=== PATIENT | female | born 1965 | race Caucasian/White ===

== ENCOUNTER 2024-10-23 15:23 | Inpatient (IN) | payer MEDICARE, MEDICAID, SELFPAY ==
[2024-10-23] VITALS (15 sets, daily range): BP systolic 98–148; BP diastolic 56–87; PULSE 58–89; RESP 15–22; TEMP 36.7; O2SAT 79–100; BMI 41.8
--- NOTE | 2024-10-23 | ECG_ITS ---
Test Reason : sob Blood Pressure : */* mmHG Vent. Rate : 82 BPM Atrial Rate : 82 BPM P-R Int : 152 ms QRS Dur : 166 ms QT Int : 404 ms P-R-T Axes : 45 -60 9 degrees QTcB Int : 472 ms Normal sinus rhythm Right bundle branch block Left anterior fascicular block Bifascicular block Minimal voltage criteria for LVH, may be normal variant ( R in aVL ) Abnormal ECG No previous ECGs available Referred By: Generic ED Physician Electronically Signed By: Douglas Gan
--- NOTE | ~2024-10-23 | XR_ITS ---
CLINICAL HISTORY: cp 1 view chest x-ray Comparison: None provided Findings: There is prominence of pulmonary vasculature. There is prominence of interstitial markings. There is no consolidative process. Borderline heart size. Dense mitral annular calcification. No acute fracture. IMPRESSION: 1. Possible pulmonary congestion. 2. Prominence of interstitial markings may be chronic or could indicate interstitial edema or interstitial infiltrates. This document has been electronically signed by: Angi Browne MD on 10/23/2024 18:05:05
--- NOTE | ~2024-10-23 | CT_ITS ---
CLINICAL HISTORY: hypoxia r o PNA CT Chest WO Contrast COMPARISON: CR - XR CHEST 1V - 10/23/24 16:54 EDT FINDINGS: Trace bilateral pleural effusions with adjacent atelectasis and/or infiltrates. No pneumothorax. No cardiomegaly. No pericardial effusion. No pathologically enlarged lymph nodes. No thoracic aortic aneurysm. No acute fracture. Mild degenerative changes in the spine. Diffusely hypodense liver consistent with hepatic steatosis. Hepatomegaly. IMPRESSION: Trace bilateral pleural effusions with adjacent atelectasis and/or infiltrates. Nonemergent/incidental findings above. This document has been electronically signed by: Deny Mejía MD on 10/23/2024 23:42:21
--- NOTE | 2024-10-23 16:13 | ED_ITS ---
HPI - SOB/Dyspnea General Chief Complaint: Dyspnea Stated Complaint: hypoxic per staff, on nrb Time Seen by Provider: 10/23/24 16:00 History of Present Illness HPI Narrative: In his a 59-year-old female with a history of upper respiratory symptoms. Has a history of COPD history of congestive heart failure baseline not on oxygen. Full code has a history of psychiatric disorder has a history of smoking and peripheral vascular disease. Presented today with increasing shortness of breath coughing upper respiratory symptoms. Patient is from assisted. Related Data Home Medications ?Medication ?Instructions ?Recorded ?Confirmed acetaminophen 650 mg rectal 650 mg [place] Q6H PRN Fever Or Pain 10/23/24 10/23/24 suppository aspirin 81 mg tablet,delayed 81 mg PO DAILY 10/23/24 0 10/23/24 release atorvastatin 20 mg tablet 20 mg PO BEDTIME 10/23/24 bisacodyl 10 mg rectal suppository 10 mg [place] DAILY PRN Constipation 10/23/24 10/23/24 chlorhexidine gluconate 0.12 % 15 ml PO BID 10/23/24 0 10/23/24 mouthwash cholecalciferol (vitamin D3) 1,250 1,250 mcg PO QMONTH 10/23/24 10/23/24 mcg (50,000 unit) tablet dextran 70-hypromellose eye drops 1 drp ophthalmic (ey e) Q4H PRN Dry 10/23/24 10/23/24 in a dropperette (Artificial Tears Eye(S) (PF) drops in a dropperette) docusate sodium 100 mg capsule 100 mg PO DAILY 5 10/23/24 donepezil 10 mg tablet 10 mg PO BEDTIME 10/23/24 epinephrine 0.3 mg/0.3 mL 0.3 mg IM Q15M PRN Allergic 10/23/24 10/23/24 injection, auto-injector (EpiPen) Reaction ferrous sulfate 325 mg (65 mg 325 mg PO DAILY 10/23/24 10/23/24 iron) tablet,delayed release gemfibrozil 600 mg tablet 600 mg PO BID 10/23/2410/23 glucagon 1 mg/0.2 mL subcutaneous 1 mg subcut Q15M PRN low blood 10/23/24 10/23/24 solution (Gvoke) sugar lisinopril 5 mg tablet 5 mg PO DAILY 10/23/2410/23 loperamide 2 mg tablet 2 mg PO NEEDED PRN Loose Stool 10/23/24 10/23/24 lorazepam 1 mg tablet 1 mg PO TID 10/23/24 5 methyl salicylate 15 %-menthol 10 1 appl topical DAILY PRN Pain 10/23/24 10/23/24 % topical cream (Muscle Rub) metoprolol tartrate 25 mg tablet 12.5 mg PO BID 10/23/24 nystatin 100,000 unit/gram topical 1 appl topical STEPAN Y 10/23/24 10/23/24 ointment ondansetron HCl 4 mg tablet 4 mg PO Q8H PRN Nausea And Vomiting 10/23/24 10/23/24 polyethylene glycol 3350 17 17 g PO DAILY PRN Constipa tion 10/23/24 10/23/24 gram/dose oral powder (Miralax) pseudoephedrine-guaifenesin ER 60 1 tab PO BID 5 10/23/24 mg-600 mg tablet,extend release 12hr (Mucinex D) quetiapine 300 mg tablet 300 mg PO BID 10/23/2410/23 risperidone 3 mg tablet 3 mg PO BID 10/23/24 5 risperidone microspheres 50 mg/2 50 mg IM Q2W 10/23/24 10/23/24 mL intramuscular susp,ext release (Risperdal Consta) sertraline 100 mg tablet 100 mg PO DAILY 10/23/2403/09 sodium phosphates 19 gram-7 118 ml [place] DAILY PRN Consti pation 10/23/24 10/23/24 gram/118 mL enema (Fleet Enema) valacyclovir 500 mg tablet 500 mg PO DAILY 10/23/24 Allergies Allergy/AdvReac Type Severity Reaction Status Date / Time amoxicillin Allergy Unknown Verified 10/23/24 15:37 indomethacin Allergy Unknown Verified 10/23/24 15:37 naproxen (From Naprosyn) Allergy Unknown Verified 10/23/24 15:37 Papaya Derivative Allergy Unknown Verified 10/23/24 15:37 Penicillins Allergy Unknown Verified 10/23/24 15:37 tramadol (From Ultram) Allergy Unknown Verified 10/23/24 15:37 Review of Systems 2 Review of Systems: Positive coughing upper respiratory symptoms Yes all other systems are reviewed and are negative [facility] Social History Social History Advance Directives: No Advance Directives Information Provided: Yes Physical Exam 2 Vital Signs: Vital Signs: Last Vital Signs Temp 98.1 F 10/23/24 15:30 Pulse 84 10/23/24 23:35 Resp 23 H 10/24/24 00:01 BP 117/73 10/23/24 22:30 Pulse Ox 94 10/23/24 22:30 O2 Del Method BiPAP 10/23/24 22:30 O2 Flow Rate 4 10/23/24 20:13 Oxygen Flow Rate 6 10/23/24 15:30 BMI result Body Mass Index 41.8 Appearance: Alert. Oriented X3. No acute distress. Eyes: Pupils equal, round and reactive to light. ENT: Pharynx normal. Neck: Normal inspection. Neck supple. No lymph nodes noted. No crepitus CVS: Normal heart rate and rhythm. Pulses normal. Normal S1 and S2 Respiratory: Diminished breath sounds bilaterally Abdomen: Soft and nontender. No rigidity. No distention. good BS x4 Skin: Skin warm and dry. Normal skin color. Normal skin turgor. Extremities: 3+ pitting edema in the lower extremity Neuro: Oriented X 3. No motor deficit. No sensory deficit. Moving all extermities. No slurred speech Medications Administered Generic Name Dose Route Start Last Admin Trade Name Freq PRN Reason Stop Dose Admin Albuterol/Ipratropium 3 ml 10/23/24 22:45 10/23/24 23:34 Albuterol/Iprat 2.5/0.5mg 3 Ml Ampul.Neb INHALE 3 ml Q6H SANDRA Administration Discontinued Medications Generic Name Dose Route Start Last Admin Trade Name Freq PRN Reason Stop Dose Admin Albuterol Sulfate 5 mg/ 0 mg 10/23/24 16:47 10/23/24 17:05 Albuterol/Ipratropium 3 ml INHALE 10/23/24 16:48 1 each ONCE ONE Administration Cefepime HCl 1 gm/ Sodium 50 mls @ 100 mls/hr 10/23/24 16:08 10/23/24 17:27 Chloride IV 10/23/24 16:37 Infused ONCE ONE Infusion Magnesium Sulfate 2 gm in 50 mls @ 150 mls/hr 10/23/24 16:08 10/23/24 17:17 Magnesium Sulfate/H2o IV 10/23/24 16:27 Infused ONCE ONE Infusion Methylprednisolone Sodium Succinate 125 mg 10/23/24 16:08 10/23/24 16:57 Methylprednisolone Sod Succ 125 Mg/2 Ml Vial IVPUSH 10/23/24 16:09 125 mg ONCE ONE Administration Medical Decision Making Medical Decision Making [facility] Narrative: No significant old records here at [facility]. History of congestive heart failure history of COPD documented from assisted paperwork. Patient is a full code. Presented with increasing shortness of breath needing oxygen. Will get labs, steroid, x-rays. Patient is started on a bronch protocol. My interpretation patient's EKG showed a sinus rhythm heart rate is 80 [place] is normal QRS is wide patient has a right bundle branch block there is no acute ST segment elevation. There is no old EKG to compare. ABG was done. It showed acute on chronic CO2 retention. BiPAP was started. Patient's BNP was normal there is no evidence for congestive heart failure. X- ray showed no focal infiltrate. Less likely pneumonia nevertheless patient was covered with cefepime. She is from assisted. Require increasing O2 demand. Towel Hemmer was notified. Will consult on the case. Patient's symptom actually improved after the BiPAP. Repeat VBG showed no CO2 retention normal pH. Case consulted by the hospitalist team. Will admit for further evaluation. Differential Diagnosis Differential Diagnoses: The differential diagnosis associated with the presentation includes Respiratory failure, COPD Admission/Observation Consideration of admission/observation: Escalation of care including admission/observation considered Consult Healthcare Provider Management of the patient was discussed with: Hand Washer (Towel Hemmer) Lab Data [facility] Lab Attestation statement: I reviewed the patient's lab results. 10/23/24 23:18 10/23/24 23:18 Labs: Lab Results 10/23/24 10/23/24 10/23/24 Range/Units 16:49 16:51 16:58 WBC 12.6 H (4.8-10.8) X10*3/uL RBC 4.48 (4.20-5.50) X10*6/uL Hgb 11.9 L (12.0-16.0) g/dl Hct 37.3 (37.0-47.0) % MCV 83.3 (80.0-98.0) fL MCH 26.6 L (27.0-33.0) pg MCHC 31.9 (31.0-35.0) g/dl RDW 13.8 (11.0-16.0) % Plt Count 298 (160-400) X10*3/uL MPV 9.5 (9.4-12.3) fL Immature Gran % (Auto) 0.9 H (0.0-0.4) % Neut % (Auto) 78.0 H (45-73) % Lymph % (Auto) 14.6 L (20-40) % [place] % (Auto) 5.6 (2-11) % Eos % (Auto) 0.7 (0-4) % Baso % (Auto) 0.2 (0-2) % Lymph # (Auto) 1.8 (1.2-4.9) X10*3/uL [place] # (Auto) 0.7 (0.1-1.2) X10*3/uL Eos # (Auto) 0.1 (0.0-0.4) X10*3/uL Baso # (Auto) 0.0 (0.0-0.2) X10*3/uL Abs Immat Gran (auto) 0.11 H (0.00-0.03) X10*3/uL Absolute Neuts (auto) 9.8 H (2.0-8.3) x10*3/uL Absolute Nucleated RBC 0.000 (0.0-0.012) X10*3/uL Nucleated RBC % (auto) 0.0 (0.0-0.2) /100WBC O2 Saturation % ABG pH at Pt Temp (7.35-7.45) ABG pCO2 at Pt Temp (32-45) mmHg ABG pO2 at Pt Temp (83-108) mmHg ABG HCO3 (22-26) mmol/L ABG Base Excess (Actual) mmol/L VBG pH 7.37 (7.32-7.43) VBG pCO2 53 mmHg VBG pO2 50 mmHg VBG HCO3 31 H (22-26) mmol/L VBG O2 Saturation 82.0 % VBG Base Excess 5.4 mmol/L Sodium (135-145) mmol/L Potassium (3.3-5.1) mmol/L Chloride (96-108) mmol/L Carbon Dioxide (22-29) mmol/L Anion Gap (12-20) BUN (9-16) mg/dL Creatinine (0.5-1.4) mg/dL Estim Creat Clear Calc Estimated GFR Random Glucose (60-115) mg/dL Lactic Acid 0.7 (0.5-2.0) mmol/L Calcium (8.4-10.2) mg/dL Total Bilirubin (0.0-1.0) mg/dL Direct Bilirubin (0.0-0.5) mg/dL AST (5-31) U/L ALT (0-31) U/L Alkaline Phosphatase (39-117) U/L Troponin I High Sens 5.6 (<3.5-17.0) ng/L B-Natriuretic Peptide 84 (<100) pg/mL Total Protein (6.5-8.0) g/dL Albumin (3.5-5.0) g/dL Urine Color Urine Appearance Urine pH (5.0-9.0) Ur Specific [place] (1.005-1.025) Urine Protein (Neg-Trace) mg/dL Urine Glucose (UA) (Negative) mg/dL Urine Ketones (Negative) mg/dL Urine Blood (Negative) Urine Nitrite (Negative) Ur Leukocyte Esterase (Negative) Urine RBC (0-2) /HPF Urine WBC (0-5) /HPF Ur Squamous Epith Cells (0-2) /HPF Urine Bacteria (None Seen) Hyaline Casts (0-2) /LPF Influenza Type A (PCR) NEGATIVE (Negative) Influenza Type B (PCR) NEGATIVE (Negative) RSV RNA Qual (PCR) NEGATIVE (Negative) SARS-CoV-2 RNA (RT-PCR) NEGATIVE (Negative) 10/23/24 10/23/24 10/23/24 Range/Units 17:00 17:43 20:25 WBC (4.8-10.8) X10*3/uL RBC (4.20-5.50) X10*6/uL Hgb (12.0-16.0) g/dl Hct (37.0-47.0) % MCV (80.0-98.0) fL MCH (27.0-33.0) pg MCHC (31.0-35.0) g/dl RDW (11.0-16.0) % Plt Count (160-400) X10*3/uL MPV (9.4-12.3) fL Immature Gran % (Auto) (0.0-0.4) % Neut % (Auto) (45-73) % Lymph % (Auto) (20-40) % [place] % (Auto) (2-11) % Eos % (Auto) (0-4) % Baso % (Auto) (0-2) % Lymph # (Auto) (1.2-4.9) X10*3/uL [place] # (Auto) (0.1-1.2) X10*3/uL Eos # (Auto) (0.0-0.4) X10*3/uL Baso # (Auto) (0.0-0.2) X10*3/uL Abs Immat Gran (auto) (0.00-0.03) X10*3/uL Absolute Neuts (auto) (2.0-8.3) x10*3/uL Absolute Nucleated RBC (0.0-0.012) X10*3/uL Nucleated RBC % (auto) (0.0-0.2) /100WBC O2 Saturation 79.0 % ABG pH at Pt Temp 7.29 L (7.35-7.45) ABG pCO2 at Pt Temp 71 H* (32-45) mmHg ABG pO2 at Pt Temp 56 L (83-108) mmHg ABG HCO3 34 H (22-26) mmol/L ABG Base Excess (Actual) 5.7 mmol/L VBG pH 7.44 H (7.32-7.43) VBG pCO2 39 mmHg VBG pO2 213 mmHg VBG HCO3 26 (22-26) mmol/L VBG O2 Saturation 100.0 % VBG Base Excess 2.7 mmol/L Sodium 138 (135-145) mmol/L Potassium 4.2 (3.3-5.1) mmol/L Chloride 99 (96-108) mmol/L Carbon Dioxide 33 H (22-29) mmol/L Anion Gap 10 L (12-20) BUN 21 H (9-16) mg/dL Creatinine 0.89 (0.5-1.4) mg/dL Estim Creat Clear Calc 94.8 Estimated GFR > 60 Random Glucose 97 (60-115) mg/dL Lactic Acid (0.5-2.0) mmol/L Calcium 9.5 (8.4-10.2) mg/dL Total Bilirubin 0.2 (0.0-1.0) mg/dL Direct Bilirubin < 0.2 (0.0-0.5) mg/dL AST 16 (5-31) U/L ALT 13 (0-31) U/L Alkaline Phosphatase 93 (39-117) U/L Troponin I High Sens (<3.5-17.0) ng/L B-Natriuretic Peptide (<100) pg/mL Total Protein 7.3 (6.5-8.0) g/dL Albumin 3.9 (3.5-5.0) g/dL Urine Color Urine Appearance Urine pH (5.0-9.0) Ur Specific [place] (1.005-1.025) Urine Protein (Neg-Trace) mg/dL Urine Glucose (UA) (Negative) mg/dL Urine Ketones (Negative) mg/dL Urine Blood (Negative) Urine Nitrite (Negative) Ur Leukocyte Esterase (Negative) Urine RBC (0-2) /HPF Urine WBC (0-5) /HPF Ur Squamous Epith Cells (0-2) /HPF Urine Bacteria (None Seen) Hyaline Casts (0-2) /LPF Influenza Type A (PCR) (Negative) Influenza Type B (PCR) (Negative) RSV RNA Qual (PCR) (Negative) SARS-CoV-2 RNA (RT-PCR) (Negative) 10/23/24 10/23/24 Range/Units 20:28 22:36 WBC (4.8-10.8) X10*3/uL RBC (4.20-5.50) X10*6/uL Hgb (12.0-16.0) g/dl Hct (37.0-47.0) % MCV (80.0-98.0) fL MCH (27.0-33.0) pg MCHC (31.0-35.0) g/dl RDW (11.0-16.0) % Plt Count (160-400) X10*3/uL MPV (9.4-12.3) fL Immature Gran % (Auto) (0.0-0.4) % Neut % (Auto) (45-73) % Lymph % (Auto) (20-40) % [place] % (Auto) (2-11) % Eos % (Auto) (0-4) % Baso % (Auto) (0-2) % Lymph # (Auto) (1.2-4.9) X10*3/uL [place] # (Auto) (0.1-1.2) X10*3/uL Eos # (Auto) (0.0-0.4) X10*3/uL Baso # (Auto) (0.0-0.2) X10*3/uL Abs Immat Gran (auto) (0.00-0.03) X10*3/uL Absolute Neuts (auto) (2.0-8.3) x10*3/uL Absolute Nucleated RBC (0.0-0.012) X10*3/uL Nucleated RBC % (auto) (0.0-0.2) /100WBC O2 Saturation 96.0 % ABG pH at Pt Temp 7.30 L (7.35-7.45) ABG pCO2 at Pt Temp 65 H* (32-45) mmHg ABG pO2 at Pt Temp 87 (83-108) mmHg ABG HCO3 32 H (22-26) mmol/L ABG Base Excess (Actual) 4.6 mmol/L VBG pH (7.32-7.43) VBG pCO2 mmHg VBG pO2 mmHg VBG HCO3 (22-26) mmol/L VBG O2 Saturation % VBG Base Excess mmol/L Sodium (135-145) mmol/L Potassium (3.3-5.1) mmol/L Chloride (96-108) mmol/L Carbon Dioxide (22-29) mmol/L Anion Gap (12-20) BUN (9-16) mg/dL Creatinine (0.5-1.4) mg/dL Estim Creat Clear Calc Estimated GFR Random Glucose (60-115) mg/dL Lactic Acid (0.5-2.0) mmol/L Calcium (8.4-10.2) mg/dL Total Bilirubin (0.0-1.0) mg/dL Direct Bilirubin (0.0-0.5) mg/dL AST (5-31) U/L ALT (0-31) U/L Alkaline Phosphatase (39-117) U/L Troponin I High Sens (<3.5-17.0) ng/L B-Natriuretic Peptide (<100) pg/mL Total Protein (6.5-8.0) g/dL Albumin (3.5-5.0) g/dL Urine Color Yellow Urine Appearance Clear Urine pH 5.5 (5.0-9.0) Ur Specific [place] 1.025 (1.005-1.025) Urine Protein 30 (1+) H (Neg-Trace) mg/dL Urine Glucose (UA) Negative (Negative) mg/dL Urine Ketones Negative (Negative) mg/dL Urine Blood Negative (Negative) Urine Nitrite Negative (Negative) Ur Leukocyte Esterase Negative (Negative) Urine RBC 0-2 (0-2) /HPF Urine WBC 0-5 (0-5) /HPF Ur Squamous Epith Cells 3-5 (0-2) /HPF Urine Bacteria None Seen (None Seen) Hyaline Casts 3-5 (0-2) /LPF Influenza Type A (PCR) (Negative) Influenza Type B (PCR) (Negative) RSV RNA Qual (PCR) (Negative) SARS-CoV-2 RNA (RT-PCR) (Negative) Independent Interpretation I performed an independent interpretation of an: EKG (Sinus pattern heart rate was 70 with a right bundle branch block. T-wave inversion no acute changes when compared to previous) and Plain X-Ray Interpretation: Grossly negative no pneumonia Radiology Impression Discussion of test interpretation with radiology: I have reviewed the radiologist's reading. External Record Review External record reviewed: Inpatient record Social Determinants Patient?s care significantly limited by Social Determinants of Health including: Alcoholism and drug addiction in family and Problems related to primary support group Critical Care Time Critical Care Time Critical Care Time: Yes Total Critical Care Time: 40 Attestation: I have personally provided 40 minutes of critical care time exclusive of time spent on separately billable procedures. ?Time includes review of lab data, radiology results, discussion with consultants, and monitoring for potential decompensation. ?Interventions were performed as documented above Discharge Plan Discharge Clinical Impression: Acute exacerbation of chronic obstructive airways disease Patient Disposition: Admitted As Inpatient
[2024-10-23] MEDS: Magnesium Sulfate/H2O 2 GM/50 ML PIGGYBACK IV (16:57)
[2024-10-23 16:59] LABS: MANUAL DIFF FLAG NO
[2024-10-23 17:01] LABS: Venous Blood Gas Refer to POC result
[2024-10-23 17:02] LABS: Hematocrit 37.3 % (37.0-47.0); Hemoglobin 11.9 g/dl (12.0-16.0); Imm Gran Abs Auto 0.11 X10*3/uL (0.00-0.03); Imm Gran Pct Auto 0.9 % (0.0-0.4); Lymphocytes Absolute Auto 1.8 X10*3/uL (1.2-4.9); Mean Corpuscular HGB Conc 31.9 g/dl (31.0-35.0); Mean Corpuscular Hemoglobin 26.6 pg (27.0-33.0); Mean Corpuscular Volume 83.3 fL (80.0-98.0); NRBC Abs Auto 0.000 X10*3/uL (0.0-0.012); NRBC Pct Auto 0.0 /100WBC (0.0-0.2); Platelet Count 298 X10*3/uL (160-400); Red Blood Count 4.48 X10*6/uL (4.20-5.50); White Blood Count 12.6 X10*3/uL (4.8-10.8)
[2024-10-23 17:03] LABS: VBG HCO3 31 mmol/L (22-26); VBG O2 % Saturation 82.0 %
[2024-10-23 17:04] LABS: ABG HCO3 34 mmol/L (22-26); ABG O2 % Saturation 79.0 %
[2024-10-23] MEDS: Albuterol Sulfate 5 MG, Albuterol/Iprat 2.5/0.5MG 3 ML 3 ML INHALE (17:05)
--- NOTE | 2024-10-23 17:17 | PC.NURSE ---
this float RN placed a 20gIV in the right upper arm w/ an additional 22gIV in the left upper arm - both IV access' patent/intact. labs/cultures obtained/sent to lab. pt noted to be on 4L via oxymask d/t being previously hypoxic. no sob/wob noted. respirations even/unlabored but pt seemingly lethargic. RT came bedside to assess/give pt a breathing tx. after finishing breathing tx, patient noted to become hypoxic at 79% on RA. no apparent respiratory distress noted - no sob/wob. pt remained seemingly lethargic but able to answer questions/follow commands appropriately. patient immediately placed on 4L via oxymask w/ no response. pt then titrated to 10L via oxymask w/ minimal effect and an O2 of 84%. oxymask then titrated to 15L w/ good effect - SPO2 of 95%. patient then placed in bipap via RT w/ a rate of 20 - 18/8 @ 40%. patient tolerated transition well. vitals otherwise stable/up to date aside from being slightly hypotensive. nsr on the pvc monitor. patient remains in upright position to promote patent airway. primary RN notified/aware of event. plan of care ongoing.
[2024-10-23 17:19] LABS: B Type Natriuretic Peptide 84 pg/mL (<100); Troponin-I High Sensitivity 5.6 ng/L (<3.5-17.0)
[2024-10-23 17:37] LABS: Resp Syncy Virus RNA Qual PCR NEGATIVE (Negative); SARS COV2 PCR INHOUSE NEGATIVE (Negative)
[2024-10-23 18:10] LABS: Alanine Aminotransferase 13 U/L (0-31); Albumin Level 3.9 g/dL (3.5-5.0); Alkaline Phosphatase 93 U/L (39-117); Anion Gap 10 (12-20); Aspartate Amino Transferase 16 U/L (5-31); Blood Urea Nitrogen 21 mg/dL (9-16); Calcium 9.5 mg/dL (8.4-10.2); Carbon Dioxide 33 mmol/L (22-29); Chloride 99 mmol/L (96-108); Creatinine Clr Calc Pharmacy 94.8; Estimated Glomerular Filt Rate > 60; Potassium 4.2 mmol/L (3.3-5.1); Sodium 138 mmol/L (135-145); Total Protein 7.3 g/dL (6.5-8.0)
[2024-10-23 19:19] LABS: ABG Refer to POC result
--- NOTE | 2024-10-23 20:02 | PHA.MEDREC ---
Addendum entered by Cynthia Ball [facility] 10/24/24 14:52: After several attempts reached [facility] and found out last dose of risperdal consta given on 10/14 and next dose due 10/28/24. Addendum entered by Lorenzo Florentino [facility] 10/23/24 20:12: med rec reviewed unable to clarifiy when last dose of risperdal consta given will follow up in am Original Note: Pharmacy Consult ? Medication Reconciliation Pharmacy has completed the medication reconciliation. Utilized list from [facility] to confirm med list. Tried calling to get last dose for Risperidone Consta 50 mg but nurse was not available
[2024-10-23 20:30] LABS: Venous Blood Gas Refer to POC result
[2024-10-23 20:30] LABS: VBG HCO3 26 mmol/L (22-26); VBG O2 % Saturation 100.0 %
[2024-10-23 20:37] LABS: Appearance Urine Clear; Glucose Urine UA Negative (Negative); PH 5.5 (5.0-9.0); Specific Gravity - Urine 1.025 (1.005-1.025); UMIC TRIGGER UACC YES
--- NOTE | 2024-10-23 22:06 | PC.RT ---
WITNESSED PT COMPLETE APNIC WITH ETC02 AT 65 AND SATS 80% PT GIVEN A STERNAL RUB AND WAS AROUSABLE. PLACED BACK ON BIPAP. DR. ALVARADO AWARE. WILL REPEAT ABG AND WILL LET ICU AWARE.
--- NOTE | 2024-10-23 22:32 | MHC.EDTECH ---
The nurse and I explained to the patient that she need to have her brief changed due to being wet even though she has a purewick, but patient refused to have a pad under her because she wanted a brief. We explained we don't have briefs her size and she would be more comfortable with the pads under her
--- NOTE | 2024-10-23 22:35 | PC.RT ---
pt should have a sleep study prior to discharge here at [facility].
[2024-10-23 22:40] LABS: ABG HCO3 32 mmol/L (22-26); ABG O2 % Saturation 96.0 %
[2024-10-23 23:07] LABS: ABG Refer to POC result
--- NOTE | 2024-10-23 23:14 | PM.CCHP ---
History of Present Illness Date of Service: 10/23/24 Attending physician on admission: Olayinka Berumen Chief Complaint: Acute hypoxic/hypercarbic respiratory failure 59-year-old female who is resident of a care home with underlying history of COPD and CHF who does not use oxygen at home, morbid obesity, hypertension, hyperlipidemia, iron deficiency anemia, anxiety, depression, who presented to the emergency room with complaints of worsening shortness of breath which has been present for a couple of days in context of some upper respiratory symptoms including cough and dyspnea at rest as well as with activities. Denied fever or plegm. The patient's workup in the emergency room reveal a white count of 12.6, H and H of 11.9 and 37.3 respectively with platelets of 298.? No bandemia.? Initial ABG pH 7.3 pCO2 65 PO2 87 and bicarb 32.? Chemistries showed no electrolyte abnormalities, BUN 21, creatinine 0.89, lactic acid 0.7.? Urinalysis negative respiratory panel negative.? The patient was placed on BiPAP for a couple hours, repeated venous blood gas showed correction of the respiratory acidosis and the patient was more awake, however the patient was then switched to nasal cannula oxygen and an hour later the venous blood gas was repeated showing recurrent CO2 retention and the patient also developed recurrent mental status changes with obtundation and significant episodes of apnea. ?Her chest x-ray showed possible pulmonary congestion with prominence of interstitial markings which may be chronic versus interstitial edema or interstitial infiltrates.? EKG to my review shows sinus rhythm with evidence of right bundle-branch block.? Rate 82 beats per minute, QT 404.? No comparison available. ?A CT of the chest without contrast was recorded for further clarification of the findings. At this point the patient was placed back on BiPAP and the patient will be transferred to the ICU for further care. Review of Systems Review of Systems: Yes Unobtainable due to mental status (Somewhat obtunded on BiPAP) [facility] Social History Social History Household Members: None Housing: Correction Do you presently have visiting nurse or other home services: No Patient Tobacco Use Status: Never used Tobacco Advance Directives: No Advance Directives Information Provided: Yes Do you have a plan to hurt others: No Plan Recently lost weight without trying: No Nutrition Risks: No Nutritional Risk Patient : No : No Poor oral hygiene: No Meds Allergies Allergy/AdvReac Type Severity Reaction Status Date / Time amoxicillin Allergy Unknown Verified 10/23/24 15:37 indomethacin Allergy Unknown Verified 10/23/24 15:37 naproxen (From Naprosyn) Allergy Unknown Verified 10/23/24 15:37 Papaya Derivative Allergy Unknown Verified 10/23/24 15:37 Penicillins Allergy Unknown Verified 10/23/24 15:37 tramadol (From Ultram) Allergy Unknown Verified 10/23/24 15:37 Active Medications: Current Medications Albuterol Sulfate (Albuterol Sulfate (0.083%) 2.5 Mg/3 Ml Vial.Neb) 2.5 mg INHALE Q3H PRN PRN Reason: wheezing Albuterol/Ipratropium (Albuterol/Iprat 2.5/0.5mg 3 Ml Ampul.Neb) 3 ml INHALE Q6H [facility] Azithromycin 500 mg/ Sodium (Chloride) 250 mls @ 125 mls/hr IV DAILY SANDRA Stop: 10/29/24 08:59 Methylprednisolone Sodium Succinate (Methylprednisolone Sod Succ 125 Mg/2 Ml Vial) 60 mg IVPUSH Q6H [facility] Home Medications ?Medication ?Instructions ?Recorded ?Confirmed ?Last Taken ?Type acetaminophen 650 mg rectal 650 mg TX Q6H PRN Fever Or Pain 10/23/24 10/23/24 Unknown History suppository aspirin 81 mg tablet,delayed 81 mg PO DAILY 10/23/24 10/23/24 Unknown History release atorvastatin 20 mg tablet 20 mg PO BEDTIME 10/23/24 10/23/24 Unknown History bisacodyl 10 mg rectal suppository 10 mg TX DAILY PRN Constipation 10/23/24 10/23/24 Unknown History chlorhexidine gluconate 0.12 % 15 ml PO BID 10/23/24 10/23/24 Unknown History mouthwash cholecalciferol (vitamin D3) 1,250 1,250 mcg PO QMONTH 10/23/24 10/23/24 Unknown History mcg (50,000 unit) tablet dextran 70-hypromellose eye drops 1 drp ophthalmic (eye) Q4H PRN Dry 10/23/24 10/23/24 Unknown History in a dropperette (Artificial Tears Eye(S) (PF) drops in a dropperette) docusate sodium 100 mg capsule 100 mg PO DAILY 10/23/24 10/23/24 Unknown History donepezil 10 mg tablet 10 mg PO BEDTIME 10/23/24 10/23/24 Unknown History epinephrine 0.3 mg/0.3 mL 0.3 mg IM Q15M PRN Allergic 10/23/24 10/23/24 Unknown History injection, auto-injector (EpiPen) Reaction ferrous sulfate 325 mg (65 mg 325 mg PO DAILY 10/23/24 10/23/24 Unknown History iron) tablet,delayed release gemfibrozil 600 mg tablet 600 mg PO BID 10/23/24 10/23/24 Unknown History glucagon 1 mg/0.2 mL subcutaneous 1 mg subcut Q15M PRN low blood 10/23/24 10/23/24 Unknown History solution (Gvoke) sugar lisinopril 5 mg tablet 5 mg PO DAILY 10/23/24 10/23/24 Unknown History loperamide 2 mg tablet 2 mg PO NEEDED PRN Loose Stool 10/23/24 10/23/24 Unknown History lorazepam 1 mg tablet 1 mg PO TID 10/23/24 10/23/24 Unknown History methyl salicylate 15 %-menthol 10 1 appl topical DAILY PRN Pain 10/23/24 10/23/24 Unknown History % topical cream (Muscle Rub) metoprolol tartrate 25 mg tablet 12.5 mg PO BID 10/23/24 10/23/24 Unknown History nystatin 100,000 unit/gram topical 1 appl topical DAILY 10/23/24 10/23/24 Unknown History ointment ondansetron HCl 4 mg tablet 4 mg PO Q8H PRN Nausea And Vomiting 10/23/24 10/23/24 Unknown History polyethylene glycol 3350 17 17 g PO DAILY PRN Constipation 10/23/24 10/23/24 Unknown History gram/dose oral powder (Miralax) pseudoephedrine-guaifenesin ER 60 1 tab PO BID 10/23/24 10/23/24 Unknown History mg-600 mg tablet,extend release 12hr (Mucinex D) quetiapine 300 mg tablet 300 mg PO BID 10/23/24 10/23/24 Unknown History risperidone 3 mg tablet 3 mg PO BID 10/23/24 10/23/24 Unknown History risperidone microspheres 50 mg/2 50 mg IM Q2W 10/23/24 10/23/24 Unknown History mL intramuscular susp,ext release (Risperdal Consta) sertraline 100 mg tablet 100 mg PO DAILY 10/23/24 10/23/24 Unknown History sodium phosphates 19 gram-7 118 ml TX DAILY PRN Constipation 10/23/24 10/23/24 Unknown History gram/118 mL enema (Fleet Enema) valacyclovir 500 mg tablet 500 mg PO DAILY 10/23/24 10/23/24 Unknown History Physical Exam Vital Signs: Vital Signs: Last Vital Signs Temp 98.1 F 10/23/24 15:30 Pulse 58 10/23/24 22:30 Resp 20 10/23/24 22:30 BP 117/73 10/23/24 22:30 Pulse Ox 94 10/23/24 22:30 O2 Del Method BiPAP 10/23/24 22:30 O2 Flow Rate 4 10/23/24 20:13 Oxygen Flow Rate 6 10/23/24 15:30 BMI result Body Mass Index 41.8 General:? Alert but somnolent on BiPAP.? Mild accessory muscle usage. ? Skin:? Morbidly obese. Her skin is hyperpigmented in the lower extremities as described below otherwise intact, no lesions, edema, erythema, clubbing or cyanosis.? No ulcers. HEENT:? Head is normocephalic, atraumatic, pupils equal. Buccal mucosa is dry Neck is supple without lymphadenopathy. Cardiac:? Clear S1-S2, no murmurs rubs or gallops. Pulmonary:? Diminished lung sounds bilaterally fine expiratory wheezing bilaterally .? No crackles, rales or rhonchi. Abdomen:? Protuberant, positive bowel sounds in all 4 quadrants.? Soft, nontender, no rebound or guarding.? Musculoskeletal:? Moving all 4 extremities upon request a major joints, there is no crepitus or tenderness.? The strength is 5/5 bilaterally and throughout all 4 extremities.? There is bilateral nonpitting edema in an ascending manner up to the tibial plateau. No asymmetry. Hyperpigmentation and pink coloration of the bilateral mid tibias consistent with a stasis dermatitis noted. Gait not assessed at this point. Neurologic:? As above.? No focal deficits noted. Vascular:? 2+ pulses upper and lower extremities distally.? Less than 2nd capillary refill of fingers and toes bilaterally upper and lower extremities Results Labs 10/24/24 05:20 10/24/24 05:20 Labs: Laboratory Results - last 24 hr 10/23/24 10/23/24 10/23/24 16:49 16:51 16:58 MCV 83.3 MCH 26.6 L MCHC 31.9 RDW 13.8 Plt Count 298 MPV 9.5 Immature Gran % (Auto) 0.9 H Neut % (Auto) 78.0 H Lymph % (Auto) 14.6 L [place] % (Auto) 5.6 Eos % (Auto) 0.7 Baso % (Auto) 0.2 Lymph # (Auto) 1.8 [place] # (Auto) 0.7 Eos # (Auto) 0.1 Baso # (Auto) 0.0 Abs Immat Gran (auto) 0.11 H Absolute Neuts (auto) 9.8 H Absolute Nucleated RBC 0.000 Nucleated RBC % (auto) 0.0 O2 Saturation ABG pH at Pt Temp ABG pCO2 at Pt Temp ABG pO2 at Pt Temp ABG HCO3 ABG Base Excess (Actual) VBG pH 7.37 VBG pCO2 53 VBG pO2 50 VBG HCO3 31 H VBG O2 Saturation 82.0 VBG Base Excess 5.4 Anion Gap Estim Creat Clear Calc Estimated GFR Random Glucose Lactic Acid 0.7 Calcium Total Bilirubin Direct Bilirubin AST ALT Alkaline Phosphatase B-Natriuretic Peptide 84 Total Protein Albumin Urine Color Urine Appearance Urine pH Ur Specific [place] Urine Protein Urine Glucose (UA) Urine Ketones Urine Blood Urine Nitrite Ur Leukocyte Esterase Urine RBC Urine WBC Ur Squamous Epith Cells Urine Bacteria Hyaline Casts Influenza Type A (PCR) NEGATIVE Influenza Type B (PCR) NEGATIVE RSV RNA Qual (PCR) NEGATIVE SARS-CoV-2 RNA (RT-PCR) NEGATIVE 10/23/24 10/23/24 10/23/24 17:00 17:43 20:25 MCV MCH MCHC RDW Plt Count MPV Immature Gran % (Auto) Neut % (Auto) Lymph % (Auto) [place] % (Auto) Eos % (Auto) Baso % (Auto) Lymph # (Auto) [place] # (Auto) Eos # (Auto) Baso # (Auto) Abs Immat Gran (auto) Absolute Neuts (auto) Absolute Nucleated RBC Nucleated RBC % (auto) O2 Saturation 79.0 ABG pH at Pt Temp 7.29 L ABG pCO2 at Pt Temp 71 H* ABG pO2 at Pt Temp 56 L ABG HCO3 34 H ABG Base Excess (Actual) 5.7 VBG pH 7.44 H VBG pCO2 39 VBG pO2 213 VBG HCO3 26 VBG O2 Saturation 100.0 VBG Base Excess 2.7 Anion Gap 10 L Estim Creat Clear Calc 94.8 Estimated GFR > 60 Random Glucose 97 Lactic Acid Calcium 9.5 Total Bilirubin 0.2 Direct Bilirubin < 0.2 AST 16 ALT 13 Alkaline Phosphatase 93 B-Natriuretic Peptide Total Protein 7.3 Albumin 3.9 Urine Color Urine Appearance Urine pH Ur Specific [place] Urine Protein Urine Glucose (UA) Urine Ketones Urine Blood Urine Nitrite Ur Leukocyte Esterase Urine RBC Urine WBC Ur Squamous Epith Cells Urine Bacteria Hyaline Casts Influenza Type A (PCR) Influenza Type B (PCR) RSV RNA Qual (PCR) SARS-CoV-2 RNA (RT-PCR) 10/23/24 10/23/24 20:28 22:36 MCV MCH MCHC RDW Plt Count MPV Immature Gran % (Auto) Neut % (Auto) Lymph % (Auto) [place] % (Auto) Eos % (Auto) Baso % (Auto) Lymph # (Auto) [place] # (Auto) Eos # (Auto) Baso # (Auto) Abs Immat Gran (auto) Absolute Neuts (auto) Absolute Nucleated RBC Nucleated RBC % (auto) O2 Saturation 96.0 ABG pH at Pt Temp 7.30 L ABG pCO2 at Pt Temp 65 H* ABG pO2 at Pt Temp 87 ABG HCO3 32 H ABG Base Excess (Actual) 4.6 VBG pH VBG pCO2 VBG pO2 VBG HCO3 VBG O2 Saturation VBG Base Excess Anion Gap Estim Creat Clear Calc Estimated GFR Random Glucose Lactic Acid Calcium Total Bilirubin Direct Bilirubin AST ALT Alkaline Phosphatase B-Natriuretic Peptide Total Protein Albumin Urine Color Yellow Urine Appearance Clear Urine pH 5.5 Ur Specific [place] 1.025 Urine Protein 30 (1+) H Urine Glucose (UA) Negative Urine Ketones Negative Urine Blood Negative Urine Nitrite Negative Ur Leukocyte Esterase Negative Urine RBC 0-2 Urine WBC 0-5 Ur Squamous Epith Cells 3-5 Urine Bacteria None Seen Hyaline Casts 3-5 Influenza Type A (PCR) Influenza Type B (PCR) RSV RNA Qual (PCR) SARS-CoV-2 RNA (RT-PCR) Assessment and Plan (1) Acute respiratory failure with hypoxia and hypercarbia: Status: Acute Plan ASSESSMENT : 1. Acute hypoxic respiratory failure 2. Acute COPD exacerbation 3. Morbid obesity 4. Suspected bibasilar atelectasis versus early pneumonia per CT 5. Stable Essential hypertension 6. Chronic Anxiety 7. Acute kidney injury likely prerenal with BUN to creatinine ratio greater than 20. 8. Proteinuria PLAN OF CARE: The patient will be admitted to the ICU, monitor vital signs, I's and O's, continue with BiPAP, target O2 sat 90 % therefore FiO2 will be titrated accordingly, we will continue with Solu-Medrol, albuterol p.r.n. and DuoNebs scheduled.? As she has a COPD or, we will place her on Rocephin and Zithromax. Sputum culture and Gram stain. I do not think the patient is septic. She appears dehydrated, slow be fluids will be given. GI PROPHYLAXIS:? IV PPI DVT PROPHYLAXIS:? Lovenox 40mg bid due to large body habitus Critical care time used for critical evaluation of this patient, diagnosis, treatment and coordination of care, review her records and documentation TOTAL CRITICAL CARE TIME? 75 MIN . discussion and coordination with consultants, completely separate from any procedures performed. Patient's care was discussed in detail with Dr. Breumen who is aware of all the above as well as the plan of care for this patient.
[2024-10-23 23:30] LABS: Hematocrit 38.0 % (37.0-47.0); Hemoglobin 12.2 g/dl (12.0-16.0); Imm Gran Abs Auto 0.15 X10*3/uL (0.00-0.03); Imm Gran Pct Auto 1.3 % (0.0-0.4); Lymphocytes Absolute Auto 0.9 X10*3/uL (1.2-4.9); MANUAL DIFF FLAG SCAN; Mean Corpuscular HGB Conc 32.1 g/dl (31.0-35.0); Mean Corpuscular Hemoglobin 26.6 pg (27.0-33.0); Mean Corpuscular Volume 83.0 fL (80.0-98.0); NRBC Abs Auto 0.000 X10*3/uL (0.0-0.012); NRBC Pct Auto 0.0 /100WBC (0.0-0.2); Platelet Count 268 X10*3/uL (160-400); Red Blood Count 4.58 X10*6/uL (4.20-5.50); SCAN SMEAR FLAG 1; White Blood Count 11.8 X10*3/uL (4.8-10.8)
[2024-10-23] MEDS: Albuterol/Iprat 2.5/0.5MG 3 ML AMPUL.NEB INHALE (23:34)
[2024-10-23 23:48] LABS: Alanine Aminotransferase 15 U/L (0-31); Albumin Level 3.8 g/dL (3.5-5.0); Alkaline Phosphatase 91 U/L (39-117); Anion Gap 15 (12-20); Aspartate Amino Transferase 15 U/L (5-31); Blood Urea Nitrogen 20 mg/dL (9-16); Calcium 9.3 mg/dL (8.4-10.2); Carbon Dioxide 26 mmol/L (22-29); Chloride 99 mmol/L (96-108); Creatinine Clr Calc Pharmacy 124.0; Estimated Glomerular Filt Rate > 60; Magnesium 2.3 mg/dL (1.6-2.6); Potassium 4.5 mmol/L (3.3-5.1); Sodium 135 mmol/L (135-145); Total Protein 7.2 g/dL (6.5-8.0)
[2024-10-24] VITALS (24 sets, daily range): BP systolic 111–146; BP diastolic 58–93; PULSE 49–84; RESP 11–29; TEMP 36.2–36.9; O2SAT 88–97; BMI 51.9; BMI 52.7
[2024-10-24] MEDS: Lactated Ringers 1,000 ML 100 ML IVCONT ×2 (00:34→08:15)
[2024-10-24] MEDS: Albuterol/Iprat 2.5/0.5MG 3 ML AMPUL.NEB INHALE ×4 (04:50→22:34)
[2024-10-24 05:27] LABS: VBG HCO3 29 mmol/L (22-26); VBG O2 % Saturation 76.0 %
[2024-10-24 05:35] LABS: Venous Blood Gas Refer to POC result
[2024-10-24 05:57] LABS: MANUAL DIFF FLAG NO
[2024-10-24 06:00] LABS: Hematocrit 41.8 % (37.0-47.0); Hemoglobin 12.8 g/dl (12.0-16.0); Imm Gran Abs Auto 0.14 X10*3/uL (0.00-0.03); Imm Gran Pct Auto 1.4 % (0.0-0.4); Lymphocytes Absolute Auto 0.9 X10*3/uL (1.2-4.9); Mean Corpuscular HGB Conc 30.6 g/dl (31.0-35.0); Mean Corpuscular Hemoglobin 25.9 pg (27.0-33.0); Mean Corpuscular Volume 84.4 fL (80.0-98.0); NRBC Abs Auto 0.000 X10*3/uL (0.0-0.012); NRBC Pct Auto 0.0 /100WBC (0.0-0.2); Platelet Count 268 X10*3/uL (160-400); Red Blood Count 4.95 X10*6/uL (4.20-5.50); White Blood Count 10.4 X10*3/uL (4.8-10.8)
[2024-10-24 06:14] LABS: Alanine Aminotransferase 12 U/L (0-31); Albumin Level 3.7 g/dL (3.5-5.0); Alkaline Phosphatase 88 U/L (39-117); Anion Gap 13 (12-20); Aspartate Amino Transferase 15 U/L (5-31); Blood Urea Nitrogen 20 mg/dL (9-16); Calcium 9.4 mg/dL (8.4-10.2); Carbon Dioxide 27 mmol/L (22-29); Chloride 99 mmol/L (96-108); Creatinine Clr Calc Pharmacy 159.7; Estimated Glomerular Filt Rate > 60; Magnesium 2.3 mg/dL (1.6-2.6); Potassium 4.6 mmol/L (3.3-5.1); Sodium 134 mmol/L (135-145); Total Protein 7.0 g/dL (6.5-8.0)
--- NOTE | 2024-10-24 06:21 | HE.ICUCC ---
ICU Critical Care Nursing Note: Patient admitted to ICU for acute hypoxic/hypercarbic resp failure requiring Bipap ICU Day #:1 Neuro: A&O x2-3 vague with date/time Cardiac: Sinus Rhythm with BBB Resp: LS diminished GI/: external catheter draining CYU Integumentary/Musculoskeletal:skin intact / pt ambulates with walker Psychosocial (family etc.):Patient lives at SNF Central Lines: Peripheral IVs 20 right arm/22 left upper arm
--- NOTE | 2024-10-24 11:11 | PM.CCPN ---
Subjective Subjective Date of Service: 10/24/24 Interval History: Doing better this morning, off BiPAP since 08:00; comfortable Critical Care Time (minutes): 35 Physical Exam Vital Signs: Vital Signs: Last Vital Signs Temp 97.2 F 10/24/24 08:00 Pulse 63 10/24/24 10:00 Resp 29 H 10/24/24 10:00 BP 127/77 10/24/24 10:00 Pulse Ox 93 10/24/24 10:00 O2 Del Method Nasal Cannula 10/24/24 10:00 O2 Flow Rate 1 10/24/24 10:00 FiO2 30 10/24/24 07:00 Oxygen Flow Rate 6 10/23/24 15:30 BMI result Body Mass Index 52.7 General: Morbidly obese lady in mild acute distress Nutritional Appearance: well nourished and morbidly obese Eyes: appearance normal, both eyes and all related structures; Alignment and Position: alignment normal and position normal Neck: No lymphadenopathy, no thyromegaly Resp: bilateral air entry equal, occasional wheeze heard Cardio: Regular rate, regular rhythm; Heart sounds: S1 normal heart sound present and S2 normal heart sound present GI: soft, nontender, no guarding, no hepatosplenomegaly : bladder normal to inspection, bladder normal to palpation, no renal angle tenderness Skin: no rashes or lesions noted and elasticity normal Neuro: oriented to person, oriented to place, oriented to time and moves all extremities Objective Data Labs 10/24/24 05:20 10/24/24 05:20 Labs: Laboratory Results - last 24 hr 10/23/24 10/23/24 10/23/24 16:49 16:51 16:58 WBC 12.6 H RBC 4.48 Hgb 11.9 L Hct 37.3 MCV 83.3 MCH 26.6 L MCHC 31.9 RDW 13.8 Plt Count 298 MPV 9.5 Immature Gran % (Auto) 0.9 H Neut % (Auto) 78.0 H Lymph % (Auto) 14.6 L [place] % (Auto) 5.6 Eos % (Auto) 0.7 Baso % (Auto) 0.2 Lymph # (Auto) 1.8 [place] # (Auto) 0.7 Eos # (Auto) 0.1 Baso # (Auto) 0.0 Abs Immat Gran (auto) 0.11 H Absolute Neuts (auto) 9.8 H Absolute Nucleated RBC 0.000 Nucleated RBC % (auto) 0.0 Smear Tech's Comments O2 Saturation ABG pH at Pt Temp ABG pCO2 at Pt Temp ABG pO2 at Pt Temp ABG HCO3 ABG Base Excess (Actual) VBG pH 7.37 VBG pCO2 53 VBG pO2 50 VBG HCO3 31 H VBG O2 Saturation 82.0 VBG Base Excess 5.4 Sodium Potassium Chloride Carbon Dioxide Anion Gap BUN Creatinine Estim Creat Clear Calc Estimated GFR Random Glucose Lactic Acid 0.7 Calcium Phosphorus Magnesium Total Bilirubin Direct Bilirubin AST ALT Alkaline Phosphatase Troponin I High Sens 5.6 B-Natriuretic Peptide 84 Total Protein Albumin Urine Color Urine Appearance Urine pH Ur Specific [place] Urine Protein Urine Glucose (UA) Urine Ketones Urine Blood Urine Nitrite Ur Leukocyte Esterase Urine RBC Urine WBC Ur Squamous Epith Cells Urine Bacteria Hyaline Casts Influenza Type A (PCR) NEGATIVE Influenza Type B (PCR) NEGATIVE RSV RNA Qual (PCR) NEGATIVE SARS-CoV-2 RNA (RT-PCR) NEGATIVE 10/23/24 10/23/24 10/23/24 17:00 17:43 20:25 WBC RBC Hgb Hct MCV MCH MCHC RDW Plt Count MPV Immature Gran % (Auto) Neut % (Auto) Lymph % (Auto) [place] % (Auto) Eos % (Auto) Baso % (Auto) Lymph # (Auto) [place] # (Auto) Eos # (Auto) Baso # (Auto) Abs Immat Gran (auto) Absolute Neuts (auto) Absolute Nucleated RBC Nucleated RBC % (auto) Smear Tech's Comments O2 Saturation 79.0 ABG pH at Pt Temp 7.29 L ABG pCO2 at Pt Temp 71 H* ABG pO2 at Pt Temp 56 L ABG HCO3 34 H ABG Base Excess (Actual) 5.7 VBG pH 7.44 H VBG pCO2 39 VBG pO2 213 VBG HCO3 26 VBG O2 Saturation 100.0 VBG Base Excess 2.7 Sodium 138 Potassium 4.2 Chloride 99 Carbon Dioxide 33 H Anion Gap 10 L BUN 21 H Creatinine 0.89 Estim Creat Clear Calc 94.8 Estimated GFR > 60 Random Glucose 97 Lactic Acid Calcium 9.5 Phosphorus Magnesium Total Bilirubin 0.2 Direct Bilirubin < 0.2 AST 16 ALT 13 Alkaline Phosphatase 93 Troponin I High Sens B-Natriuretic Peptide Total Protein 7.3 Albumin 3.9 Urine Color Urine Appearance Urine pH Ur Specific [place] Urine Protein Urine Glucose (UA) Urine Ketones Urine Blood Urine Nitrite Ur Leukocyte Esterase Urine RBC Urine WBC Ur Squamous Epith Cells Urine Bacteria Hyaline Casts Influenza Type A (PCR) Influenza Type B (PCR) RSV RNA Qual (PCR) SARS-CoV-2 RNA (RT-PCR) 10/23/24 10/23/24 10/23/24 20:28 22:36 23:18 WBC 11.8 H RBC 4.58 Hgb 12.2 Hct 38.0 MCV 83.0 MCH 26.6 L MCHC 32.1 RDW 13.7 Plt Count 268 MPV 8.9 L Immature Gran % (Auto) 1.3 H Neut % (Auto) 90.3 H Lymph % (Auto) 7.2 L [place] % (Auto) 0.9 L Eos % (Auto) 0.1 Baso % (Auto) 0.2 Lymph # (Auto) 0.9 L [place] # (Auto) 0.1 Eos # (Auto) 0.0 Baso # (Auto) 0.0 Abs Immat Gran (auto) 0.15 H Absolute Neuts (auto) 10.6 H Absolute Nucleated RBC 0.000 Nucleated RBC % (auto) 0.0 Smear Tech's Comments VERIFIED O2 Saturation 96.0 ABG pH at Pt Temp 7.30 L ABG pCO2 at Pt Temp 65 H* ABG pO2 at Pt Temp 87 ABG HCO3 32 H ABG Base Excess (Actual) 4.6 VBG pH VBG pCO2 VBG pO2 VBG HCO3 VBG O2 Saturation VBG Base Excess Sodium 135 Potassium 4.5 Chloride 99 Carbon Dioxide 26 Anion Gap 15 BUN 20 H Creatinine 0.68 Estim Creat Clear Calc 124.0 Estimated GFR > 60 Random Glucose 164 H Lactic Acid Calcium 9.3 Phosphorus 3.2 Magnesium 2.3 Total Bilirubin 0.1 Direct Bilirubin AST 15 ALT 15 Alkaline Phosphatase 91 Troponin I High Sens B-Natriuretic Peptide Total Protein 7.2 Albumin 3.8 Urine Color Yellow Urine Appearance Clear Urine pH 5.5 Ur Specific [place] 1.025 Urine Protein 30 (1+) H Urine Glucose (UA) Negative Urine Ketones Negative Urine Blood Negative Urine Nitrite Negative Ur Leukocyte Esterase Negative Urine RBC 0-2 Urine WBC 0-5 Ur Squamous Epith Cells 3-5 Urine Bacteria None Seen Hyaline Casts 3-5 Influenza Type A (PCR) Influenza Type B (PCR) RSV RNA Qual (PCR) SARS-CoV-2 RNA (RT-PCR) 10/24/24 10/24/24 05:20 05:23 WBC 10.4 RBC 4.95 Hgb 12.8 Hct 41.8 MCV 84.4 MCH 25.9 L MCHC 30.6 L RDW 13.5 Plt Count 268 MPV 9.6 Immature Gran % (Auto) 1.4 H Neut % (Auto) 88.6 H Lymph % (Auto) 8.5 L [place] % (Auto) 1.1 L Eos % (Auto) 0.0 Baso % (Auto) 0.4 Lymph # (Auto) 0.9 L [place] # (Auto) 0.1 Eos # (Auto) 0.0 Baso # (Auto) 0.0 Abs Immat Gran (auto) 0.14 H Absolute Neuts (auto) 9.2 H Absolute Nucleated RBC 0.000 Nucleated RBC % (auto) 0.0 Smear Tech's Comments O2 Saturation ABG pH at Pt Temp ABG pCO2 at Pt Temp ABG pO2 at Pt Temp ABG HCO3 ABG Base Excess (Actual) VBG pH 7.48 H VBG pCO2 38 VBG pO2 45 VBG HCO3 29 H VBG O2 Saturation 76.0 VBG Base Excess 5.4 Sodium 134 L Potassium 4.6 Chloride 99 Carbon Dioxide 27 Anion Gap 13 BUN 20 H Creatinine 0.60 Estim Creat Clear Calc 159.7 Estimated GFR > 60 Random Glucose 137 H Lactic Acid Calcium 9.4 Phosphorus 2.7 Magnesium 2.3 Total Bilirubin 0.1 Direct Bilirubin AST 15 ALT 12 Alkaline Phosphatase 88 Troponin I High Sens B-Natriuretic Peptide Total Protein 7.0 Albumin 3.7 Urine Color Urine Appearance Urine pH Ur Specific [place] Urine Protein Urine Glucose (UA) Urine Ketones Urine Blood Urine Nitrite Ur Leukocyte Esterase Urine RBC Urine WBC Ur Squamous Epith Cells Urine Bacteria Hyaline Casts Influenza Type A (PCR) Influenza Type B (PCR) RSV RNA Qual (PCR) SARS-CoV-2 RNA (RT-PCR) Progress Note: A&P Assessment and plan (1) Acute exacerbation of chronic obstructive airways disease: Status: Acute (2) Anxiety: Status: Acute Plan COPD and CHF who does not use oxygen at home, morbid obesity, hypertension, hyperlipidemia, iron deficiency anemia, anxiety, depression Acute on chronic respiratory failure: Secondary to COPD exacerbation Chest CT shows bilateral minimal pleural effusion, adjacent atelectasis and mild ground-glass opacities. Pleural effusion too small to be tapped. We will add Lasix 40 mg b.i.d. Currently stable on nasal cannula oxygen, BiPAP as needed during the night Solu-Medrol 40 mg IV daily, can switch to p.o. prednisone tomorrow Duo nebs around the clock Empiric ceftriaxone and azithromycin History of heart failure: Unclear if systolic or diastolic, we will get a TTE We will restart home carvedilol, lisinopril, aspirin and statin History of anxiety and depression: On multiple home medication including sertraline, Seroquel, risperidone and donepezil; all medications restarted Prophylaxis: Lovenox, omeprazole Will transfer to floor Quality Stroke Does the patient have a stroke diagnosis?: No VTE Prior VTE?: No VTE Risk Level:: Medical - moderate - high VTE Device Contraindication: N/A - Device Ordered VTE Drug Contraindication: N/A - Med Ordered
--- NOTE | 2024-10-24 12:02 | MHC.CM.PN ---
IMM DELIVERED CM MET WITH PT AT BEDSIDE IN ICU. 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 PT REQUIRES ASSIST WITH ADL'S AND FUNCTIONAL MOBILITY. RETURN REFERRAL SENT TO SNF WITH A REQUEST FOR A COPY OF HCP/OR GUARDIANSHIP. PT WILL RETURN TO [facility] DC VIA BLS.
[2024-10-24] MEDS: Aspirin Enteric Coated 81 MG TABLET.DR PO (12:29)
[2024-10-24] MEDS: Furosemide 40 MG/4 ML VIAL IVPUSH (12:30)
[2024-10-24] MEDS: Metoprolol Tartrate 12.5 MG HALFTAB PO ×2 (13:11→20:21)
[2024-10-24 14:27] LABS: Chlamydia pneumoniae PCR Not Detected (Not Detect.); Coronavirus 229E PCR Not Detected (Not Detect.); Coronavirus HKU1 PCR Not Detected (Not Detect.); Coronavirus NL63 PCR Not Detected (Not Detect.); Coronavirus OC43 PCR Not Detected (Not Detect.); RSV PCR Not Detected (Not Detect.); Rhino/Enterovirus PCR Not Detected (Not Detect.)
--- NOTE | 2024-10-24 14:29 | PC.NURSE ---
Assumed care at 0700. Pt placed on room air at approx 0800. O2 sat of 92%. Pt is awake and interacting with others. Pt is oriented to self, time, situation. Pt confabulates, for example stating that she ?had a baby last year? that was ?covered in spaghetti and corn.? Pt overall pleasant. Pt transferred to [place]. Report given to Amy POLK at approx 1345. Pt repositioned q2hr as tolerated. Fall/safety precautions in place. See MAR and assessments for further details.
[2024-10-24 14:36] LABS: Influenza A H1 PCR Not Detected (Not Detect.); Influenza A H1-2009 PCR Not Detected (Not Detect.); Influenza A H3 PCR Not Detected (Not Detect.); SARS-CoV-2 PCR Not Detected (Not Detect.)
--- NOTE | 2024-10-24 16:39 | P.EN_ITS ---
Event Note Date of Service: 10/25/24 Event Note: Patient is already seen and examined by ICU team this morning, seen and examined again. Denies any complaints-sob somewhat improving sob improving Assessment and plan and physical exam as per H&P[facility] records from [facility] records:58 yo woman with complex past medical history including schizophrenia, hypertension, hyperlipidemia, morbid obesity, chronic lower extremity edema?:admitted for Acute on chronic respiratory failure Secondary to COPD with acute exacerbation plan as per icu note Time Spent With Patient Time: Total time managing care of this patient today ____ minutes.
[2024-10-25] VITALS (13 sets, daily range): BP systolic 103–143; BP diastolic 52–81; PULSE 53–76; RESP 16–20; TEMP 36.1–36.4; O2SAT 91–97; BMI 51.7
[2024-10-25] MEDS: Furosemide 40 MG/4 ML VIAL IVPUSH ×2 (00:10→14:29)
[2024-10-25] MEDS: Albuterol/Iprat 2.5/0.5MG 3 ML AMPUL.NEB INHALE ×4 (05:00→23:02)
[2024-10-25] MEDS: Metoprolol Tartrate 12.5 MG HALFTAB PO ×2 (09:53→21:06)
[2024-10-25] MEDS: Aspirin Enteric Coated 81 MG TABLET.DR PO (10:01)
--- NOTE | 2024-10-25 15:26 | HO.PM.IMPN ---
Subjective Subjective Date of Service: 10/25/24 Interval History: copd execerbation Review of Systems sob somewhat improving has still sob with activity no fevers Physical Exam Vital Signs: Vital Signs: Last Vital Signs Temp 97.2 F 10/25/24 11:28 Pulse 68 10/25/24 11:28 Resp 16 10/25/24 11:28 BP 105/52 L 10/25/24 14:29 Pulse Ox 91 L 10/25/24 11:28 O2 Del Method Room Air 10/25/24 11:28 O2 Flow Rate 2 10/24/24 20:00 FiO2 30 10/25/24 00:00 Oxygen Flow Rate 6 10/23/24 15:30 BMI result Body Mass Index 51.7 Appearance: Alert.? Oriented X3.?. cvs: rrr, [id number] . res: clear to auscultation ,no rhonchii or wheezing abd: no rebound or guarding ,nt, bs present. ext pulses present , no cyanosis . neuro: axo3 , nonfocal. Objective Data Active Medications Albuterol/Ipratropium (Albuterol/Iprat 2.5/0.5mg 3 Ml Ampul.Neb) 3 ml INHALE Q6H [facility] Last Admin: 10/25/24 11:26 Dose: 3 ml Documented By: HEYDI Aspirin (Aspirin Enteric Coated 81 Mg Tablet.) 81 mg PO DAILY [facility] Last Admin: 10/25/24 10:01 Dose: 81 mg Documented By: CLAY Atorvastatin Calcium (Atorvastatin Calcium 20 Mg Tablet) 20 mg PO BEDTIME [facility] Last Admin: 10/24/24 20:21 Dose: 20 mg Documented By: VIOLETTE Ceftriaxone Sodium (Ceftriaxone Sodium 1 Gm Vial) 1 gm IVPUSH Q24H [facility] Last Admin: 10/25/24 09:52 Dose: 1 gm Documented By: CLAY Donepezil HCl (Donepezil Hcl 10 Mg Tablet) 10 mg PO BEDTIME [facility] Last Admin: 10/24/24 20:21 Dose: 10 mg Documented By: VIOLETTE Enoxaparin Sodium (Enoxaparin Sodium 40 Mg/0.4 Ml Syringe) 40 mg SUBCUT DAILY [facility] Last Admin: 10/25/24 09:51 Dose: 40 mg Documented By: HO.FIGDIAN Furosemide (Furosemide 40 Mg/4 Ml Vial) 40 mg IVPUSH Q12H [facility]; Protocol Last Admin: 10/25/24 14:29 Dose: 40 mg Documented By: KURT.FIGDIAN Gemfibrozil (Gemfibrozil 600 Mg Tablet) 600 mg PO BID [facility] Last Admin: 10/25/24 10:01 Dose: 600 mg Documented By: KURT.FIGDIAN Azithromycin 500 mg/ Sodium (Chloride) 250 mls @ 125 mls/hr IV DAILY [facility] Stop: 10/29/24 08:59 Last Admin: 10/25/24 10:03 Dose: 125 mls/hr Documented By: KURT.FIGDIAN Lisinopril (Lisinopril 5 Mg Tablet) 5 mg PO DAILY [facility]; Protocol Last Admin: 10/25/24 10:02 Dose: 5 mg Documented By: KURT.FIGDIAN Methylprednisolone Sodium Succinate (Methylprednisolone Sod Succ 125 Mg/2 Ml Vial) 60 mg IVPUSH DAILY [facility] Last Admin: 10/25/24 09:51 Dose: 60 mg Documented By: KURT.FIGDIAN Metoprolol Tartrate (Metoprolol Tartrate 12.5 Mg Halftab) 12.5 mg PO BID [facility]; Protocol Last Admin: 10/25/24 09:53 Dose: 12.5 mg Documented By: KURT.FIGDIAN Quetiapine Fumarate (Quetiapine Fumarate 300 Mg Tablet) 300 mg PO BID [facility] Last Admin: 10/25/24 10:02 Dose: 300 mg Documented By: KURT.FIGDIAN Risperidone (Risperidone 3 Mg Tablet) 3 mg PO BID [facility] Last Admin: 10/25/24 10:02 Dose: 3 mg Documented By: KURT.FIGDIAN Sertraline HCl (Sertraline Hcl 100 Mg Tablet) 100 mg PO DAILY [facility] Last Admin: 10/25/24 10:02 Dose: 100 mg Documented By: KURT.FIGDIAN Labs 10/24/24 05:20 10/24/24 05:20 Microbiology Microbiology Results: Microbiology 10/23/24 16:49 Blood Culture - Preliminary Blood - Venous No growth after 24 hours. 10/23/24 16:49 Blood Culture - Preliminary Blood - Venous No growth after 24 hours. 10/24/24 12:51 Gram Stain - Final Sputum - Expectorated Sputum Culture - Final Assessment and Plan (1) Anxiety: Status: Acute (2) Acute exacerbation of chronic obstructive airways disease: Status: Acute Plan COPD does not use oxygen at home, morbid obesity, hypertension, hyperlipidemia, iron deficiency anemia, anxiety, depression Acute on chronic respiratory failure: Secondary to COPD exacerbation Chest CT shows bilateral minimal pleural effusion, adjacent atelectasis and mild ground-glass opacities. Pleural effusion too small to be tapped. Plan: Currently stable on nasal cannula oxygen, BiPAP as needed during the night as per ICU Continue oxygen weaning, nebs, steroids, antibiotics, blood culture negative at 24 hours Preliminary evaluation unclear if has hx heart failure: Unclear if systolic or diastolic, we will get a TTE he is on carvedilol, lisinopril, aspirin and statin History of anxiety and depression: On multiple home medication including sertraline, Seroquel, risperidone and donepezil; all medications restarted Prophylaxis: Lovenox, omeprazole ongoing need: Acute on chronic respiratory failure secondary to COPD exacerbation-taper oxygen, nebs, steroids,echo,pulm eval. Quality Stroke Does the patient have a stroke diagnosis?: No VTE Prior VTE?: No VTE Risk Level:: Medical - moderate - high VTE Device Contraindication: N/A - Device Ordered VTE Drug Contraindication: N/A - Med Ordered
[2024-10-26] VITALS (10 sets, daily range): BP systolic 119–132; BP diastolic 60–81; PULSE 50–90; RESP 16–21; TEMP 36.3–37.1; O2SAT 89–95; BMI 51.6
[2024-10-26] MEDS: Furosemide 40 MG/4 ML VIAL IVPUSH ×2 (00:27→12:40)
[2024-10-26] MEDS: Albuterol/Iprat 2.5/0.5MG 3 ML AMPUL.NEB INHALE ×3 (04:48→19:47)
--- NOTE | 2024-10-26 07:00 | CA_ITS ---
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 The calculated ejection fraction is 52% by biplane method. - There is moderate posterior mitral annular calcification. Findings Procedure Information Contrast agent, definity, is being given per protocol without apparent complications. Left Ventricle Normal left ventricular cavity size. There is mildly increased left ventricular wall thickness. The left ventricular systolic function is low normal. The calculated ejection fraction is 52% by biplane method. Diastolic function is normal for age. Paradoxical septal motion consistent with conduction system abnormality. Right Ventricle Mildly increased right ventricular cavity size. There is low normal right ventricular systolic function. Atria The left atrium is mildly dilated. The right atrium is normal in size. Aortic Valve There is a normal trileaflet aortic valve. There is no aortic valve stenosis. There is no aortic valve regurgitation. Mitral Valve There is moderate posterior mitral annular calcification. There is no mitral valve regurgitation. There is no mitral valve stenosis. Pulmonic Valve The pulmonic valve is likely normal. Tricuspid Valve There is mild tricuspid valve regurgitation. There is no evidence of pulmonary hypertension. Great Vessels The asc aorta is normal in size. Venous The inferior vena cava is mildly dilated and collapses greater than 50% with inspiration. Pericardium/Pleural There is no evidence of pericardial effusion. Prior Study Comparison No prior study available for comparison. Measurements 2D Linear Measurements IVSd: 1.28 0.6-0.9/0.6-1.0 cm LVIDd: 4.22 3.9-5.3/4.2-5.9 cm LVIDd Index: 1.65 2.4-3.2/2.2-3.1 cm/m2 LVIDs: 2.64 2.0-3.6 cm LVPWd: 1.26 0.7-1.1 cm LA Diam: 4.10 2.7-3.8/3.0-4.0 cm LAIDs Index: 1.60 1.5-2.3 cm/m2 LV Mass: 243.11 67-162/88-224 g LV Mass Index: 94.97 43-95/49-115 g/m2 LVOT Diam: 2.20 3.0+(-)1.3 cm 2D Systolic Function EF 4C: 49.20 >55% EF 2C: 58.30 >55% EF BiP: 52.30 >55% Mitral Valve MV VTI: 0.53 MV Pk Santos: 1.16 MV Mn Santos: 0.67 MV Pk Grad: 5.00 MV Mn Grad: 2.00 MV Pk E: 1.15 MV PK A: 1.24 MV Decel Time: 384.00 E/A: 0.90 E'Lateral: 10.00 E'Medial: 5.98 E/E' Med: 19.20 E/E' Lat: 11.50 PHT: 112.00 MVA PHT: 1.96 MVA Continuity: 1.85 Decel Nuckolls: 3.00 Aortic Valve AoV Pk Santos: 1.76 AoV Mn Santos: 1.11 AoV VTI: 0.41 AoV Pk Grad: 12.00 Aov Mn Grad: 6.00 YAIR Cont.VTI: 2.38 LVOT LVOT Pk Santos: 1.10 LVOT Mn Santos: 0.72 LVOT VTI: 0.26 LVOT Pk Grad: 5.00 LVOT Mn Grad: 2.00 LVOT Diam: 2.20 LVOT Area: 3.80 Diastolic Function MV Pk E: 1.15 MV Pk A: 1.24 E/A: 0.90 E'Medial: 5.98 E/E' Med: 19.20 E' Laterial: 10.00 E/E' Lat: 11.50 Right Ventricle TAPSE (mm): 26.50 TVS' Santos: 9.79 Tricuspid Valve TR Pk Santos: 2.37 TR Pk Grad: 22.00 RA Press: 3.00 RVSP: 25.00 Great Vessels Aorta Sinus of Valsalva: 2.90 2.0-3.5 cm Ao Asc: 3.30 2.1-3.4 cm Pulmonary Valve PV Pk Santos: 1.31 Peak PV Grad: 7.00 Updated in Other Vendor System with Status of Final Amaury Dia MD electronically signed on 10/26/2024 11:02:57 AM with status of Final
[2024-10-26] MEDS: Aspirin Enteric Coated 81 MG TABLET.DR PO (07:59)
[2024-10-26] MEDS: Metoprolol Tartrate 12.5 MG HALFTAB PO ×2 (08:00→21:36)
--- NOTE | 2024-10-26 11:01 | MHC.CM.PN ---
EMR REVIEWED, PT W/COPD EXAC FROM [facility], STEP DOWN FROM ICU, PER MD PT IMPROVING, PLAN FOR ECCHO AND MAY NEED BIPAP, CM WILL CONT TO FOLLWO DC NEEDS.
--- NOTE | 2024-10-26 13:40 | PM.CNPUL ---
History of Present Illness History of Present Illness Consult date: 10/26/24 Chief complaint: Acute Hypoxic Hypercarpnic resp failure Narrative: 59-year-old lady active 40+ pack-year smoker with underlying COPD and systolic CHF admitted on 10/23/2024 with dyspnea. On ER evaluation patient with acute hypercapnic respiratory failure requiring BiPAP support, admitted to the intensive care unit and treated for COPD exacerbation. Patient titrated off BiPAP support and downgraded to telemetry rust. She continued with improved, but not completely resolved dyspnea, until patient was started on a diuretic regimen, now with significant improvement in her respiratory status, essentially to baseline. Review of Systems Constitutional: Constitutional: Denies daytime sleepiness, Denies excessive sweating, Denies fatigue, Denies fever(s), Denies lethargy, Denies malaise, Denies night sweats, Denies snoring and Denies weight loss Eyes: Eyes: Denies blurry vision and Denies itchy eyes ENT: Denies nasal congestion, Denies post nasal drip, Denies sinus pain, Denies sinus pressure and Denies other ( Thrush) Cardiovascular: Cardiovascular: Denies chest pain, Reports pedal edema, Denies dyspnea, Reports orthopnea and Denies paroxysmal nocturnal dyspnea Respiratory: Respiratory: Denies cough, Denies hemoptysis, Denies excessive phlegm production, Denies dyspnea, Denies snoring and Denies wheezing Gastrointestinal: Gastrointestinal: Denies abdominal pain and Denies heartburn Musculoskeletal: Musculoskeletal: Denies myalgias, Denies arthralgias and Denies joint swelling Integumentary/Breasts: Skin/Breast: Denies rash Neurologic: Denies memory loss and Denies seizure-like activity Psychiatric: Psychiatric: Denies abnormal sleep pattern, Denies anxiety and Denies memory loss Endocrine: Endocrine: Denies excessive sweating, Denies fatigue and Denies heat intolerance Hematologic/Lymphatic: Hematologic/Lymphatic: Denies easy bruising Allergic/Immunologic: Allergic/Immunologic: Denies itchy eyes, Denies seasonal rhinorrhea and Denies wheezing PMFSH Social History Social History Household Members: None Housing: [facility] Do you presently have visiting nurse or other home services: No Patient Tobacco Use Status: Never used Tobacco Currently Displaying Signs/Symptoms of Drug Intoxication Withdrawal: No Advance Directives: No Advance Directives Information Provided: Yes Do you have a plan to hurt others: No Plan Recently lost weight without trying: No Nutrition Risks: No Nutritional Risk Patient : No : No Poor oral hygiene: No service: No Meds Allergies Allergy/AdvReac Type Severity Reaction Status Date / Time amoxicillin Allergy Unknown Verified 10/23/24 15:37 indomethacin Allergy Unknown Verified 10/23/24 15:37 naproxen (From Naprosyn) Allergy Unknown Verified 10/23/24 15:37 Papaya Derivative Allergy Unknown Verified 10/23/24 15:37 Penicillins Allergy Unknown Verified 10/23/24 15:37 tramadol (From Ultram) Allergy Unknown Verified 10/23/24 15:37 Active Medications: Current Medications Albuterol/Ipratropium (Albuterol/Iprat 2.5/0.5mg 3 Ml Ampul.Neb) 3 ml INHALE Q6H [facility] Last Admin: 10/26/24 11:37 Dose: 3 ml Aspirin (Aspirin Enteric Coated 81 Mg Tablet.Dr) 81 mg PO DAILY [facility] Last Admin: 10/26/24 07:59 Dose: 81 mg Atorvastatin Calcium (Atorvastatin Calcium 20 Mg Tablet) 20 mg PO BEDTIME [facility] Last Admin: 10/25/24 21:06 Dose: 20 mg Ceftriaxone Sodium (Ceftriaxone Sodium 1 Gm Vial) 1 gm IVPUSH Q24H [facility] Last Admin: 10/26/24 07:59 Dose: 1 gm Donepezil HCl (Donepezil Hcl 10 Mg Tablet) 10 mg PO BEDTIME [facility] Last Admin: 10/25/24 21:06 Dose: 10 mg Enoxaparin Sodium (Enoxaparin Sodium 40 Mg/0.4 Ml Syringe) 40 mg SUBCUT DAILY [facility] Last Admin: 10/26/24 07:59 Dose: 40 mg Furosemide (Furosemide 40 Mg/4 Ml Vial) 40 mg IVPUSH Q12H [facility]; Protocol Last Admin: 10/26/24 12:40 Dose: 40 mg Gemfibrozil (Gemfibrozil 600 Mg Tablet) 600 mg PO BID [facility] Last Admin: 10/26/24 07:59 Dose: 600 mg Azithromycin 500 mg/ Sodium (Chloride) 250 mls @ 125 mls/hr IV DAILY [facility] Stop: 10/29/24 08:59 Last Infusion: 10/26/24 12:06 Dose: Infused Lisinopril (Lisinopril 5 Mg Tablet) 5 mg PO DAILY [facility]; Protocol Last Admin: 10/26/24 07:59 Dose: 5 mg Methylprednisolone Sodium Succinate (Methylprednisolone Sod Succ 125 Mg/2 Ml Vial) 60 mg IVPUSH DAILY [facility] Last Admin: 10/26/24 07:58 Dose: 60 mg Metoprolol Tartrate (Metoprolol Tartrate 12.5 Mg Halftab) 12.5 mg PO BID [facility]; Protocol Last Admin: 10/26/24 08:00 Dose: 12.5 mg Quetiapine Fumarate (Quetiapine Fumarate 300 Mg Tablet) 300 mg PO BID [facility] Last Admin: 10/26/24 07:59 Dose: 300 mg Risperidone (Risperidone 3 Mg Tablet) 3 mg PO BID [facility] Last Admin: 10/26/24 07:59 Dose: 3 mg Sertraline HCl (Sertraline Hcl 100 Mg Tablet) 100 mg PO DAILY [facility] Last Admin: 10/26/24 07:59 Dose: 100 mg Home Medications ?Medication ?Instructions ?Recorded ?Confirmed ?Last Taken ?Type acetaminophen 650 mg rectal 650 mg TN Q6H PRN Fever Or Pain 10/23/24 10/23/24 Unknown History suppository aspirin 81 mg tablet,delayed 81 mg PO DAILY 10/23/24 10/23/24 Unknown History release atorvastatin 20 mg tablet 20 mg PO BEDTIME 10/23/24 10/23/24 Unknown History bisacodyl 10 mg rectal suppository 10 mg TN DAILY PRN Constipation 10/23/24 10/23/24 Unknown History chlorhexidine gluconate 0.12 % 15 ml PO BID 10/23/24 10/23/24 Unknown History mouthwash cholecalciferol (vitamin D3) 1,250 1,250 mcg PO QMONTH 10/23/24 10/23/24 Unknown History mcg (50,000 unit) tablet dextran 70-hypromellose eye drops 1 drp ophthalmic (eye) Q4H PRN Dry 10/23/24 10/23/24 Unknown History in a dropperette (Artificial Tears Eye(S) (PF) drops in a dropperette) docusate sodium 100 mg capsule 100 mg PO DAILY 10/23/24 10/23/24 Unknown History donepezil 10 mg tablet 10 mg PO BEDTIME 10/23/24 10/23/24 Unknown History epinephrine 0.3 mg/0.3 mL 0.3 mg IM Q15M PRN Allergic 10/23/24 10/23/24 Unknown History injection, auto-injector (EpiPen) Reaction ferrous sulfate 325 mg (65 mg 325 mg PO DAILY 10/23/24 10/23/24 Unknown History iron) tablet,delayed release gemfibrozil 600 mg tablet 600 mg PO BID 10/23/24 10/23/24 Unknown History glucagon 1 mg/0.2 mL subcutaneous 1 mg subcut Q15M PRN low blood 10/23/24 10/23/24 Unknown History solution (Gvoke) sugar lisinopril 5 mg tablet 5 mg PO DAILY 10/23/24 10/23/24 Unknown History loperamide 2 mg tablet 2 mg PO NEEDED PRN Loose Stool 10/23/24 10/23/24 Unknown History lorazepam 1 mg tablet 1 mg PO TID 10/23/24 10/23/24 Unknown History methyl salicylate 15 %-menthol 10 1 appl topical DAILY PRN Pain 10/23/24 10/23/24 Unknown History % topical cream (Muscle Rub) metoprolol tartrate 25 mg tablet 12.5 mg PO BID 10/23/24 10/23/24 Unknown History nystatin 100,000 unit/gram topical 1 appl topical DAILY 10/23/24 10/23/24 Unknown History ointment ondansetron HCl 4 mg tablet 4 mg PO Q8H PRN Nausea And Vomiting 10/23/24 10/23/24 Unknown History polyethylene glycol 3350 17 17 g PO DAILY PRN Constipation 10/23/24 10/23/24 Unknown History gram/dose oral powder (Miralax) pseudoephedrine-guaifenesin ER 60 1 tab PO BID 10/23/24 10/23/24 Unknown History mg-600 mg tablet,extend release 12hr (Mucinex D) quetiapine 300 mg tablet 300 mg PO BID 10/23/24 10/23/24 Unknown History risperidone 3 mg tablet 3 mg PO BID 10/23/24 10/23/24 Unknown History risperidone microspheres 50 mg/2 50 mg IM Q2W 10/23/24 10/24/24 10/14/24 History mL intramuscular susp,ext release (Risperdal Consta) sertraline 100 mg tablet 100 mg PO DAILY 10/23/24 10/23/24 Unknown History sodium phosphates 19 gram-7 118 ml TN DAILY PRN Constipation 10/23/24 10/23/24 Unknown History gram/118 mL enema (Fleet Enema) valacyclovir 500 mg tablet 500 mg PO DAILY 10/23/24 10/23/24 Unknown History Physical Exam Vital Signs: Vital Signs: Last Vital Signs Temp 97.3 F 10/26/24 12:00 Pulse 62 10/26/24 12:00 Resp 18 10/26/24 12:00 BP 121/70 10/26/24 12:00 Pulse Ox 92 10/26/24 12:00 O2 Del Method Nasal Cannula 10/26/24 12:00 O2 Flow Rate 2 10/26/24 12:00 FiO2 30 10/25/24 00:00 Oxygen Flow Rate 6 10/23/24 15:30 BMI result Body Mass Index 51.6 Const: General: no acute distress and alert Nutritional Appearance: obese Orientation/consciousness: Other orientation findings ( oriented) HEENT: Head: Yes atraumatic Eyes: General: appearance normal, both eyes and all related structures Sclerae: sclerae normal EOM: EOMs intact bilaterally Neck: Neck: Yes supple Lymphatic: no lymphadenopathy noted Resp: Effort & Inspection: normal respiratory effort and no use of accessory muscles Auscultation: wheezes (Mild bilateral inspiratory/expiratory wheezing) Cardio: Rate: regular rate Rhythm: regular rhythm Heart sounds: no gallops, no murmurs and no rubs GI: Palpation (GI): Soft to palpation and Other GI palpation findings present ( Nontender) Auscultation: normal bowel sounds Skin: General skin exam: other ( warm) Extrem: General: No clubbing, No cyanosis and Yes edema (1+ bilateral improving) Results Laboratory Findings 10/24/24 05:20 10/24/24 05:20 Abnormal lab findings: Abnormal Labs 10/23/24 10/23/24 10/23/24 16:49 16:58 17:00 WBC 12.6 H Hgb 11.9 L MCH 26.6 L MCHC MPV Immature Gran % (Auto) 0.9 H Neut % (Auto) 78.0 H Lymph % (Auto) 14.6 L [place] % (Auto) Lymph # (Auto) Abs Immat Gran (auto) 0.11 H Absolute Neuts (auto) 9.8 H ABG pH at Pt Temp 7.29 L ABG pCO2 at Pt Temp 71 H* ABG pO2 at Pt Temp 56 L ABG HCO3 34 H VBG pH VBG HCO3 31 H Sodium Carbon Dioxide Anion Gap BUN Random Glucose Urine Protein 10/23/24 10/23/24 10/23/24 17:43 20:25 20:28 WBC Hgb MCH MCHC MPV Immature Gran % (Auto) Neut % (Auto) Lymph % (Auto) [place] % (Auto) Lymph # (Auto) Abs Immat Gran (auto) Absolute Neuts (auto) ABG pH at Pt Temp ABG pCO2 at Pt Temp ABG pO2 at Pt Temp ABG HCO3 VBG pH 7.44 H VBG HCO3 Sodium Carbon Dioxide 33 H Anion Gap 10 L BUN 21 H Random Glucose Urine Protein 30 (1+) H 10/23/24 10/23/24 10/24/24 22:36 23:18 05:20 WBC 11.8 H Hgb MCH 26.6 L 25.9 L MCHC 30.6 L MPV 8.9 L Immature Gran % (Auto) 1.3 H 1.4 H Neut % (Auto) 90.3 H 88.6 H Lymph % (Auto) 7.2 L 8.5 L [place] % (Auto) 0.9 L 1.1 L Lymph # (Auto) 0.9 L 0.9 L Abs Immat Gran (auto) 0.15 H 0.14 H Absolute Neuts (auto) 10.6 H 9.2 H ABG pH at Pt Temp 7.30 L ABG pCO2 at Pt Temp 65 H* ABG pO2 at Pt Temp ABG HCO3 32 H VBG pH VBG HCO3 Sodium 134 L Carbon Dioxide Anion Gap BUN 20 H 20 H Random Glucose 164 H 137 H Urine Protein 10/24/24 05:23 WBC Hgb MCH MCHC MPV Immature Gran % (Auto) Neut % (Auto) Lymph % (Auto) [place] % (Auto) Lymph # (Auto) Abs Immat Gran (auto) Absolute Neuts (auto) ABG pH at Pt Temp ABG pCO2 at Pt Temp ABG pO2 at Pt Temp ABG HCO3 VBG pH 7.48 H VBG HCO3 29 H Sodium Carbon Dioxide Anion Gap BUN Random Glucose Urine Protein Microbiology: Microbiology 10/23/24 16:49 Blood - Venous Blood Culture - Preliminary No growth after 48 hours. 10/23/24 16:49 Blood - Venous Blood Culture - Preliminary No growth after 48 hours. 10/24/24 12:51 Sputum - Expectorated Gram Stain - Final 10/24/24 12:51 Sputum - Expectorated Sputum Culture - Final Assessment and Plan (1) Acute respiratory failure with hypoxia and hypercarbia: Status: Acute (2) COPD (chronic obstructive pulmonary disease): Status: Acute (3) Acute on chronic systolic (congestive) heart failure: Status: Acute Plan Impression: 59-year-old lady with underlying morbid obesity, COPD, and CHF admitted with acute on chronic respiratory failure, initially secondary to COPD exacerbation, now with acute on chronic systolic congestive heart failure component, improving appropriately with diuresis. Recommendations: Agree with current therapeutic regimen including IV diuresis, nebulized bronchodilators, and systemic glucocorticoids. Consider tapering off systemic glucocorticoids. Consider discontinuation of empiric antibiotics. Procedures Date of Service Date of Service: 10/26/24
--- NOTE | 2024-10-26 15:47 | P.PNIM_ITS ---
Subjective Subjective Date of Service: 10/26/24 Interval History: possible chf Review of Systems sob seems slightly improving denies any chest pain or cough Physical Exam 2 Vital Signs: Vital Signs: Last Vital Signs Temp 97.3 F 10/26/24 12:00 Pulse 62 10/26/24 12:00 Resp 18 10/26/24 12:00 BP 121/70 10/26/24 12:00 Pulse Ox 92 10/26/24 12:00 O2 Del Method Nasal Cannula 10/26/24 12:00 O2 Flow Rate 2 10/26/24 12:00 FiO2 30 10/25/24 00:00 Oxygen Flow Rate 6 10/23/24 15:30 BMI result Body Mass Index 51.6 Appearance: Alert.? Oriented X3.?. cvs: rrr, [id number] . res:air entry diminshed ,mild exp wheezing abd: no rebound or guarding ,nt, bs present. ext pulses present , no cyanosis , 1+ edema neuro: axo3 , nonfocal. Objective Data Active Medications Albuterol/Ipratropium (Albuterol/Iprat 2.5/0.5mg 3 Ml Ampul.Neb) 3 ml INHALE Q6H [facility] Last Admin: 10/26/24 15:25 Dose: Not Given Documented By: PHILLIP Non-Admin Reason: Patient Refused Aspirin (Aspirin Enteric Coated 81 Mg Tablet.) 81 mg PO DAILY [facility] Last Admin: 10/26/24 07:59 Dose: 81 mg Documented By: HILDA Atorvastatin Calcium (Atorvastatin Calcium 20 Mg Tablet) 20 mg PO BEDTIME [facility] Last Admin: 10/25/24 21:06 Dose: 20 mg Documented By: KAYLA Ceftriaxone Sodium (Ceftriaxone Sodium 1 Gm Vial) 1 gm IVPUSH Q24H [facility] Last Admin: 10/26/24 07:59 Dose: 1 gm Documented By: HILDA Donepezil HCl (Donepezil Hcl 10 Mg Tablet) 10 mg PO BEDTIME [facility] Last Admin: 10/25/24 21:06 Dose: 10 mg Documented By: KAYLA Enoxaparin Sodium (Enoxaparin Sodium 40 Mg/0.4 Ml Syringe) 40 mg SUBCUT DAILY [facility] Last Admin: 10/26/24 07:59 Dose: 40 mg Documented By: HILDA Furosemide (Furosemide 40 Mg/4 Ml Vial) 40 mg IVPUSH Q12H [facility]; Protocol Last Admin: 10/26/24 12:40 Dose: 40 mg Documented By: NANCY Gemfibrozil (Gemfibrozil 600 Mg Tablet) 600 mg PO BID [facility] Last Admin: 10/26/24 07:59 Dose: 600 mg Documented By: HILDA Azithromycin 500 mg/ Sodium (Chloride) 250 mls @ 125 mls/hr IV DAILY [facility] Stop: 10/29/24 08:59 Last Infusion: 10/26/24 12:06 Dose: Infused Documented By: NANCY Lisinopril (Lisinopril 5 Mg Tablet) 5 mg PO DAILY [facility]; Protocol Last Admin: 10/26/24 07:59 Dose: 5 mg Documented By: HILDA Methylprednisolone Sodium Succinate (Methylprednisolone Sod Succ 125 Mg/2 Ml Vial) 60 mg IVPUSH DAILY [facility] Last Admin: 10/26/24 07:58 Dose: 60 mg Documented By: HILDA Metoprolol Tartrate (Metoprolol Tartrate 12.5 Mg Halftab) 12.5 mg PO BID [facility]; Protocol Last Admin: 10/26/24 08:00 Dose: 12.5 mg Documented By: HILDA Quetiapine Fumarate (Quetiapine Fumarate 300 Mg Tablet) 300 mg PO BID [facility] Last Admin: 10/26/24 07:59 Dose: 300 mg Documented By: HILDA Risperidone (Risperidone 3 Mg Tablet) 3 mg PO BID [facility] Last Admin: 10/26/24 07:59 Dose: 3 mg Documented By: HILDA Sertraline HCl (Sertraline Hcl 100 Mg Tablet) 100 mg PO DAILY [facility] Last Admin: 10/26/24 07:59 Dose: 100 mg Documented By: HILDA Labs 10/24/24 05:20 10/24/24 05:20 Microbiology Microbiology Results: Microbiology 10/23/24 16:49 Blood Culture - Preliminary Blood - Venous No growth after 48 hours. 10/23/24 16:49 Blood Culture - Preliminary Blood - Venous No growth after 48 hours. Assessment and Plan (1) COPD (chronic obstructive pulmonary disease): Status: Acute Plan COPD does not use oxygen at home, morbid obesity, hypertension, hyperlipidemia, iron deficiency anemia, anxiety, depression possible chf execerebation :etiology unclear Unclear if systolic or diastolic, we will get a TTE he is on carvedilol, lisinopril, aspirin and statin,iv lasix ,1/o,daily weight i/o negative 2.2 liters Acute on chronic respiratory failure:Secondary to COPD exacerbation Chest CT shows bilateral minimal pleural effusion, adjacent atelectasis and mild ground-glass opacities. Pleural effusion too small to be tapped. Plan: Currently stable on nasal cannula oxygen, BiPAP as needed during the night as per ICU Continue oxygen weaning, nebs, steroids, antibiotics, blood culture negative at 24 hours pulm eval noted. History of anxiety and depression: started sertraline, Seroquel, risperidone and donepezil,lorazepam. Prophylaxis: Lovenox, omeprazole ongoing need: Acute on chronic respiratory failure secondary to COPD /chf exacerbation-taper oxygen, nebs, steroids,echo,i/o ,renal function /electrolytes monitering Quality Stroke Does the patient have a stroke diagnosis?: No VTE Prior VTE?: No VTE Risk Level:: Medical - moderate - high VTE Device Contraindication: N/A - Device Ordered VTE Drug Contraindication: N/A - Med Ordered
[2024-10-26] MEDS: Furosemide 40 MG/4 ML VIAL 20 MG IVPUSH (16:42)
--- NOTE | 2024-10-26 16:54 | P.CDIM_ITS ---
PROVIDER RESPONSE TEXT: To clarify, the appropriate diagnosis supported by the clinical indicators: Other (explain): etiology,not clear QUERY TEXT: PHYSICIAN'S DOCUMENTATION REQUEST Date of Query: 10/26/2024 09:33 AM EDT Patient Name: Mayra Colindres Admit Date: 10/24/2024 Dear Lori Dockery MD, A review of the medical record indicates additional documentation may be needed. Please review below and update the documentation accordingly. Clinical Indicators: ICU H&P 10/23/24 - BEST likely prerenal with BUN to Cr ratio gr than 20 BUN 21/20 GFR >60 CR 0.89/0.68 Fluids, patient was dehydrated poa. The diagnosis of Acute kidney injury was documented on 10/23/24 but is not consistently noted in subsequent documentation. Please clarify the following, if agree: Acute kidney injury (BEST) Diagnosis was present on admission and is now resolved Diagnosis was present on admission and is still being monitored, evaluated, or treated Diagnosis was ruled out Diagnosis is still a likely, suspected, probable diagnosis Other (explain) Clinically unable to determine (explain) Thank you, Nancy Bowie, CCS, CDIS Use of terms such as suspected, likely, concern for, or probable (associated with a specific diagnosis that is being evaluated, monitored, or treated as if it exists) are acceptable and can be coded in the inpatient setting, when documented at the time of discharge. Please use your independent medical judgment in providing your response. THIS QUERY IS PART OF THE PERMANENT MEDICAL RECORD
[2024-10-26] MEDS: Chlorhexidine Gluc Oral Rinse 15 ML MOUTHWASH BUCCAL (21:36)
[2024-10-27] VITALS (12 sets, daily range): BP systolic 94–133; BP diastolic 51–78; PULSE 63–89; RESP 16–21; TEMP 36–36.7; O2SAT 90–95; BMI 48.8
[2024-10-27] MEDS: Albuterol/Iprat 2.5/0.5MG 3 ML AMPUL.NEB INHALE ×3 (03:18→22:30)
[2024-10-27] MEDS: Furosemide 40 MG/4 ML VIAL 20 MG IVPUSH (05:24)
[2024-10-27 07:41] LABS: Hematocrit 40.6 % (37.0-47.0); Hemoglobin 12.5 g/dl (12.0-16.0); Mean Corpuscular HGB Conc 30.8 g/dl (31.0-35.0); Mean Corpuscular Hemoglobin 25.7 pg (27.0-33.0); Mean Corpuscular Volume 83.5 fL (80.0-98.0); NRBC Abs Auto 0.000 X10*3/uL (0.0-0.012); NRBC Pct Auto 0.0 /100WBC (0.0-0.2); Platelet Count 305 X10*3/uL (160-400); Red Blood Count 4.86 X10*6/uL (4.20-5.50); White Blood Count 11.2 X10*3/uL (4.8-10.8)
[2024-10-27] MEDS: Aspirin Enteric Coated 81 MG TABLET.DR PO (07:52)
[2024-10-27] MEDS: Ferrous Sulfate 324 MG TABLET.DR PO (07:52)
[2024-10-27 07:53] LABS: Anion Gap 15 (12-20); Blood Urea Nitrogen 27 mg/dL (9-16); Calcium 9.5 mg/dL (8.4-10.2); Carbon Dioxide 37 mmol/L (22-29); Chloride 94 mmol/L (96-108); Creatinine Clr Calc Pharmacy 115.4; Estimated Glomerular Filt Rate > 60; Potassium 3.6 mmol/L (3.3-5.1); Sodium 142 mmol/L (135-145)
[2024-10-27] MEDS: Metoprolol Tartrate 12.5 MG HALFTAB PO ×2 (07:53→21:20)
[2024-10-27] MEDS: Chlorhexidine Gluc Oral Rinse 15 ML MOUTHWASH BUCCAL (07:53)
[2024-10-27 08:01] LABS: B Type Natriuretic Peptide 29 pg/mL (<100)
[2024-10-27 12:25] LABS: Venous Blood Gas Refer to POC result
[2024-10-27 12:26] LABS: VBG HCO3 43 mmol/L (22-26); VBG O2 % Saturation 98.0 %
--- NOTE | 2024-10-27 15:39 | HO.PM.IMPN ---
Subjective Subjective Date of Service: 10/27/24 Interval History: CHF, COPD Review of Systems Review of Systems: Yes all other systems are reviewed and are negative Physical Exam Vital Signs: Vital Signs: Last Vital Signs Temp 96.8 F 10/27/24 15:25 Pulse 79 10/27/24 15:25 Resp 16 10/27/24 15:25 BP 105/61 10/27/24 15:25 Pulse Ox 90 L 10/27/24 15:25 O2 Del Method Room Air 10/27/24 15:25 O2 Flow Rate 2 10/26/24 19:31 FiO2 30 10/25/24 00:00 Oxygen Flow Rate 6 10/23/24 15:30 BMI result Body Mass Index 48.8 Appearance: awake ,alert ,labile mood cvs: rrr, [id number]. res: clear to auscultation ,no rhonchii or wheezing abd: no rebound or guarding ,nt, bs present. ext pulses present , no cyanosis . neuro: nonfocal. Objective Data Active Medications Albuterol/Ipratropium (Albuterol/Iprat 2.5/0.5mg 3 Ml Ampul.Neb) 3 ml INHALE Q6H [facility] Last Admin: 10/27/24 11:54 Dose: 3 ml Documented By: PHILLIP Artificial Tears (Artificial Tears 15 Ml Drops) 1 drop EYE-BOTH Q4H PRN PRN Reason: Dry Eye(S) Aspirin (Aspirin Enteric Coated 81 Mg Tablet.) 81 mg PO DAILY [facility] Last Admin: 10/27/24 07:52 Dose: 81 mg Documented By: NANCY Atorvastatin Calcium (Atorvastatin Calcium 20 Mg Tablet) 20 mg PO BEDTIME [facility] Last Admin: 10/26/24 21:36 Dose: 20 mg Documented By: JAMARCUS-ARMANDOZEB Bisacodyl (Bisacodyl 10 Mg Supp.Rect) 10 mg PA DAILY PRN PRN Reason: Constipation Ceftriaxone Sodium (Ceftriaxone Sodium 1 Gm Vial) 1 gm IVPUSH Q24H [facility] Last Admin: 10/27/24 07:47 Dose: 1 gm Documented By: NANCY Chlorhexidine Gluconate (Chlorhexidine Gluc Oral Rinse 15 Ml Mouthwash) 15 ml BUCCAL BID [facility] Last Admin: 10/27/24 07:53 Dose: 15 ml Documented By: NANCY Docusate Sodium (Docusate Sodium 100 Mg Capsule) 100 mg PO DAILY [facility] Last Admin: 10/27/24 07:52 Dose: 100 mg Documented By: NANCY Donepezil HCl (Donepezil Hcl 10 Mg Tablet) 10 mg PO BEDTIME [facility] Last Admin: 10/26/24 21:36 Dose: 10 mg Documented By: JAMARCUS-JOZEGina Enoxaparin Sodium (Enoxaparin Sodium 40 Mg/0.4 Ml Syringe) 40 mg SUBCUT DAILY [facility] Last Admin: 10/27/24 07:52 Dose: 40 mg Documented By: NANCY Epinephrine (Epinephrine 1 Mg/Ml Vial) 0.3 mg IM Q15M PRN PRN Reason: Allergic Reaction Ferrous Sulfate (Ferrous Sulfate 324 Mg Tablet.) 324 mg PO DAILY [facility] Last Admin: 10/27/24 07:52 Dose: 324 mg Documented By: NANCY Furosemide (Furosemide 40 Mg/4 Ml Vial) 20 mg IVPUSH DAILY [facility]; Protocol Last Admin: 10/27/24 09:29 Dose: Not Given Documented By: ELENI Non-Admin Reason: Physician Approved Gemfibrozil (Gemfibrozil 600 Mg Tablet) 600 mg PO BID [facility] Last Admin: 10/27/24 07:53 Dose: 600 mg Documented By: NANCY Azithromycin 500 mg/ Sodium (Chloride) 250 mls @ 125 mls/hr IV DAILY [facility] Stop: 10/29/24 08:59 Last Infusion: 10/27/24 11:00 Dose: Infused Documented By: ELENI Lisinopril (Lisinopril 5 Mg Tablet) 5 mg PO DAILY [facility]; Protocol On Hold: 10/27/24 07:57 Last Admin: 10/27/24 07:52 Dose: 5 mg Documented By: NANCY Loperamide HCl (Loperamide Hcl 2 Mg Capsule) 2 mg PO Q4H PRN PRN Reason: Loose Stool Lorazepam (Lorazepam 1 Mg Tablet) 1 mg PO TID [facility] Last Admin: 10/27/24 07:52 Dose: 1 mg Documented By: NANCY Metoprolol Tartrate (Metoprolol Tartrate 12.5 Mg Halftab) 12.5 mg PO BID [facility]; Protocol Last Admin: 10/27/24 07:53 Dose: 12.5 mg Documented By: NANCY Nystatin (Nystatin Ointment 15 Gm Tube) 1 appl TOPICAL DAILY [facility]; Protocol Last Admin: 10/27/24 07:51 Dose: 1 appl Documented By: NANCY Polyethylene Glycol (Polyethylene Glycol 3350 17 Gm Powd.Pack) 17 gm PO DAILY PRN PRN Reason: Constipation Quetiapine Fumarate (Quetiapine Fumarate 300 Mg Tablet) 300 mg PO BID [facility] Last Admin: 10/27/24 07:52 Dose: 300 mg Documented By: NANCY Risperidone (Risperidone 3 Mg Tablet) 3 mg PO BID [facility] Last Admin: 10/27/24 07:52 Dose: 3 mg Documented By: NANCY Risperidone (Risperidone Microspheres 50 Mg/2 Ml Syringe) 50 mg IM Q14D [facility] Sertraline HCl (Sertraline Hcl 100 Mg Tablet) 100 mg PO DAILY [facility] Last Admin: 10/27/24 07:52 Dose: 100 mg Documented By: NANCY Sodium Biphosphate/Sodium Phosphate (Sodium Phosphate,[place]-Dibasic 133 Ml Enema) 118 ml PA DAILY PRN PRN Reason: Constipation Valacyclovir HCl (Valacyclovir Hcl 500 Mg Tablet) 500 mg PO DAILY [facility] Last Admin: 10/27/24 07:52 Dose: 500 mg Documented By: NANCY Labs 10/27/24 07:12 10/27/24 07:12 Labs: Laboratory Results - last 24 hr 10/27/24 10/27/24 07:12 12:22 MCV 83.5 MCH 25.7 L MCHC 30.8 L RDW 13.6 Plt Count 305 MPV 8.9 L Absolute Nucleated RBC 0.000 Nucleated RBC % (auto) 0.0 VBG pH 7.49 H VBG pCO2 55 VBG pO2 93 VBG HCO3 43 H VBG O2 Saturation 98.0 VBG Base Excess 16.8 Anion Gap 15 Estim Creat Clear Calc 115.4 Estimated GFR > 60 Random Glucose 95 Calcium 9.5 B-Natriuretic Peptide 29 Assessment and Plan (1) COPD (chronic obstructive pulmonary disease): Status: Acute Plan COPD does not use oxygen at home, morbid obesity, hypertension, hyperlipidemia, iron deficiency anemia, anxiety, depression possible chf execerebation :etiology unclear Unclear if systolic or diastolic, TTE he is on carvedilol, lisinopril, aspirin and statin,hold iv lasix for today ,1/o,daily weight i/o negative 2.2 liters Acute on chronic respiratory failure:Secondary to COPD exacerbation Chest CT shows bilateral minimal pleural effusion, adjacent atelectasis and mild ground-glass opacities. Pleural effusion too small to be tapped. Plan: vbg seems ph maintained,elevated bicarb Currently stable on nasal cannula oxygen, BiPAP as needed during the night as per ICU Continue oxygen weaning, nebs, steroids, antibiotics, blood culture negative at 48 hours pulm eval noted-received lasix (hold today due to prerenal azotemia) ,added dimox History of anxiety and depression: started sertraline, Seroquel, risperidone and donepezil,lorazepam. Prophylaxis: Lovenox, omeprazole ongoing need: Acute on chronic respiratory failure secondary to COPD /chf exacerbation-taper oxygen, nebs, steroids,echo,i/o ,renal function /electrolytes monitering Quality Stroke Does the patient have a stroke diagnosis?: No VTE Prior VTE?: No VTE Risk Level:: Medical - moderate - high VTE Device Contraindication: N/A - Device Ordered VTE Drug Contraindication: N/A - Med Ordered
[2024-10-28 03:55] VITALS: BP 116/63; PULSE 52; RESP 16; TEMP 36.7; O2SAT 92
[2024-10-28 04:08] VITALS: PULSE 66; RESP 16; O2SAT 95
[2024-10-28] MEDS: Albuterol/Iprat 2.5/0.5MG 3 ML AMPUL.NEB INHALE (04:12)
[2024-10-28] MEDS: Chlorhexidine Gluc Oral Rinse 15 ML MOUTHWASH BUCCAL (08:08)
[2024-10-28] MEDS: Metoprolol Tartrate 12.5 MG HALFTAB PO (08:09)
[2024-10-28] MEDS: Ferrous Sulfate 324 MG TABLET.DR PO (08:09)
[2024-10-28] MEDS: Aspirin Enteric Coated 81 MG TABLET.DR PO (08:09)
[2024-10-28 08:24] VITALS: BP 121/75; PULSE 86; RESP 20; TEMP 36.3; O2SAT 96
[2024-10-28 10:28] LABS: VBG HCO3 30 mmol/L (22-26); VBG O2 % Saturation 90.0 %
[2024-10-28 10:28] LABS: Venous Blood Gas Refer to POC result
[2024-10-28 10:39] LABS: Anion Gap 12 (12-20); Blood Urea Nitrogen 25 mg/dL (9-16); Calcium 9.1 mg/dL (8.4-10.2); Carbon Dioxide 27 mmol/L (22-29); Chloride 102 mmol/L (96-108); Creatinine Clr Calc Pharmacy 131.9; Estimated Glomerular Filt Rate > 60; Potassium 3.6 mmol/L (3.3-5.1); Sodium 137 mmol/L (135-145)
[2024-10-28 10:47] LABS: B Type Natriuretic Peptide < 10 pg/mL (<100)
[2024-10-28 10:48] VITALS: BP 109/65; PULSE 92; RESP 20; TEMP 36.4; O2SAT 90
--- NOTE | 2024-10-28 13:35 | PM.DS ---
DS: Providers Provider Date of Service: 10/28/24 Date of admission: 10/23/24 22:46 Date of discharge: 10/28/24 Primary care physician: KYLE MONTEIRO Consults: 10/25/24 15:27 Consult to Pulmonology Routine Consulting Provider: [facility] Reason for consultation: copd execrebation vs chf Has provider been notified: No DS: Diagnosis Discharge Diagnosis (1) COPD (chronic obstructive pulmonary disease): Status: Acute (2) Acute exacerbation of chronic obstructive airways disease: Status: Acute (3) Acute respiratory failure with hypoxia and hypercarbia: Status: Acute (4) Morbid obesity: Status: Acute DS: Summary Hospital Course Hospital Course: From the history and physical by the admitting flight radio operator, BUNNY Garcia, 10/24/24: 59-year-old female who is resident of a group home with underlying history of COPD and CHF who does not use oxygen at home, morbid obesity, hypertension, hyperlipidemia, iron deficiency anemia, anxiety, depression, who presented to the emergency room with complaints of worsening shortness of breath which has been present for a couple of days in context of some upper respiratory symptoms including cough and dyspnea at rest as well as with activities. Denied fever or plegm. The patient's workup in the emergency room reveal a white count of 12.6, H and H of 11.9 and 37.3 respectively with platelets of 298.? No bandemia.? Initial ABG pH 7.3 pCO2 65 PO2 87 and bicarb 32.? Chemistries showed no electrolyte abnormalities, BUN 21, creatinine 0.89, lactic acid 0.7.? Urinalysis negative respiratory panel negative.? The patient was placed on BiPAP for a couple hours, repeated venous blood gas showed correction of the respiratory acidosis and the patient was more awake, however the patient was then switched to nasal cannula oxygen and an hour later the venous blood gas was repeated showing recurrent CO2 retention and the patient also developed recurrent mental status changes with obtundation and significant episodes of apnea. ?Her chest x-ray showed possible pulmonary congestion with prominence of interstitial markings which may be chronic versus interstitial edema or interstitial infiltrates.? EKG to my review shows sinus rhythm with evidence of right bundle-branch block.? Rate 82 beats per minute, QT 404.? No comparison available. ?A CT of the chest without contrast was recorded for further clarification of the findings. At this point the patient was placed back on BiPAP and the patient will be transferred to the ICU for further care. She was admitted to the ICU for BiPAP therapy. She was treated with IV steroids, ceftriaxone and azithromycin, nebulized bronchodilators, and empiric diuresis. She improved and was stepped down to the hospitalist service/telemetry unit on 10/24/24. She completed steroid and antibiotic therapy. She remained on nocturnal BiPAP and should continue this. Outpatient pulmonology follow-up recommended. She was discharged back to [facility] for long-term nursing care. Time Attestation Discharge Coordination Time (in mins): 45 Quality: Safe Use of Opioids Does Pt have an Active Cancer Diagnosis on the Problem List?: No Quality: Stroke Does the patient have a stroke diagnosis?: No Physical Exam Vital Signs: Vital Signs: Last Vital Signs Temp 97.6 F 10/28/24 10:48 Pulse 92 10/28/24 10:48 Resp 20 10/28/24 10:48 BP 109/65 10/28/24 10:48 Pulse Ox 90 L 10/28/24 10:48 O2 Del Method Room Air 10/28/24 10:48 O2 Flow Rate 2 10/26/24 19:31 FiO2 30 10/25/24 00:00 Oxygen Flow Rate 6 10/23/24 15:30 BMI result Body Mass Index 48.8 Gen: in no acute distress HEENT: sclera anicteric, moist mucus membranes Neck: supple Lungs: clear to auscultation bilaterally Heart: regular rate and rhythm, no murmurs Abd: soft, non-tender, non-distended, obese Ext: no edema Skin: warm/well-perfused Neuro: alert and oriented x3, no focal findings Psych: appropriate affect DS: Data Data Completed and Pending Completed studies during hospitalization [Text1]: Laboratory Results WBC 11.2 X10*3/uL (4.8-10.8) H 10/27/24 07:12 RBC 4.86 X10*6/uL (4.20-5.50) 10/27/24 07:12 Hgb 12.5 g/dl (12.0-16.0) 10/27/24 07:12 Hct 40.6 % (37.0-47.0) 10/27/24 07:12 MCV 83.5 fL (80.0-98.0) 10/27/24 07:12 MCH 25.7 pg (27.0-33.0) L 10/27/24 07:12 MCHC 30.8 g/dl (31.0-35.0) L 10/27/24 07:12 RDW 13.6 % (11.0-16.0) 10/27/24 07:12 Plt Count 305 X10*3/uL (160-400) 10/27/24 07:12 MPV 8.9 fL (9.4-12.3) L 10/27/24 07:12 Immature Gran % (Auto) 1.4 % (0.0-0.4) H 10/24/24 05:20 Neut % (Auto) 88.6 % (45-73) H 10/24/24 05:20 Lymph % (Auto) 8.5 % (20-40) L 10/24/24 05:20 Bledsoe % (Auto) 1.1 % (2-11) L 10/24/24 05:20 Eos % (Auto) 0.0 % (0-4) 10/24/24 05:20 Baso % (Auto) 0.4 % (0-2) 10/24/24 05:20 Lymph # (Auto) 0.9 X10*3/uL (1.2-4.9) L 10/24/24 05:20 Bledsoe # (Auto) 0.1 X10*3/uL (0.1-1.2) 10/24/24 05:20 Eos # (Auto) 0.0 X10*3/uL (0.0-0.4) 10/24/24 05:20 Baso # (Auto) 0.0 X10*3/uL (0.0-0.2) 10/24/24 05:20 Abs Immat Gran (auto) 0.14 X10*3/uL (0.00-0.03) H 10/24/24 05:20 Absolute Neuts (auto) 9.2 x10*3/uL (2.0-8.3) H 10/24/24 05:20 Absolute Nucleated RBC 0.000 X10*3/uL (0.0-0.012) 10/27/24 07:12 Nucleated RBC % (auto) 0.0 /100WBC (0.0-0.2) 10/27/24 07:12 Smear Tech's Comments VERIFIED 10/23/24 23:18 O2 Saturation 96.0 % 10/23/24 22:36 ABG pH at Pt Temp 7.30 (7.35-7.45) L 10/23/24 22:36 ABG pCO2 at Pt Temp 65 mmHg (32-45) H* 10/23/24 22:36 ABG pO2 at Pt Temp 87 mmHg (83-108) 10/23/24 22:36 ABG HCO3 32 mmol/L (22-26) H 10/23/24 22:36 ABG Base Excess (Actual) 4.6 mmol/L 10/23/24 22:36 VBG pH 7.37 (7.32-7.43) 10/28/24 10:22 VBG pCO2 52 mmHg 10/28/24 10:22 VBG pO2 68 mmHg 10/28/24 10:22 VBG HCO3 30 mmol/L (22-26) H 10/28/24 10:22 VBG O2 Saturation 90.0 % 10/28/24 10:22 VBG Base Excess 4.1 mmol/L 10/28/24 10:22 Sodium 137 mmol/L (135-145) 10/28/24 10:17 Potassium 3.6 mmol/L (3.3-5.1) 10/28/24 10:17 Chloride 102 mmol/L (96-108) 10/28/24 10:17 Carbon Dioxide 27 mmol/L (22-29) 10/28/24 10:17 Anion Gap 12 (12-20) 10/28/24 10:17 BUN 25 mg/dL (9-16) H 10/28/24 10:17 Creatinine 0.70 mg/dL (0.5-1.4) 10/28/24 10:17 Estim Creat Clear Calc 131.9 10/28/24 10:17 Estimated GFR > 60 10/28/24 10:17 Random Glucose 134 mg/dL (60-115) H 10/28/24 10:17 Lactic Acid 0.7 mmol/L (0.5-2.0) 10/23/24 16:49 Calcium 9.1 mg/dL (8.4-10.2) 10/28/24 10:17 Phosphorus 2.7 mg/dL (2.7-4.5) 10/24/24 05:20 Magnesium 2.3 mg/dL (1.6-2.6) 10/24/24 05:20 Total Bilirubin 0.1 mg/dL (0.0-1.0) 10/24/24 05:20 Direct Bilirubin < 0.2 mg/dL (0.0-0.5) 10/23/24 17:43 AST 15 U/L (5-31) 10/24/24 05:20 ALT 12 U/L (0-31) 10/24/24 05:20 Alkaline Phosphatase 88 U/L (39-117) 10/24/24 05:20 Troponin I High Sens 5.6 ng/L (<3.5-17.0) 10/23/24 16:49 B-Natriuretic Peptide < 10 pg/mL (<100) 10/28/24 10:17 Total Protein 7.0 g/dL (6.5-8.0) 10/24/24 05:20 Albumin 3.7 g/dL (3.5-5.0) 10/24/24 05:20 Urine Color Yellow 10/23/24 20:28 Urine Appearance Clear 10/23/24 20:28 Urine pH 5.5 (5.0-9.0) 10/23/24 20:28 Ur Specific [place] 1.025 (1.005-1.025) 10/23/24 20:28 Urine Protein 30 (1+) mg/dL (Neg-Trace) H 10/23/24 20:28 Urine Glucose (UA) Negative mg/dL (Negative) 10/23/24 20:28 Urine Ketones Negative mg/dL (Negative) 10/23/24 20:28 Urine Blood Negative (Negative) 10/23/24 20:28 Urine Nitrite Negative (Negative) 10/23/24 20:28 Ur Leukocyte Esterase Negative (Negative) 10/23/24 20:28 Urine RBC 0-2 /HPF (0-2) 10/23/24 20:28 Urine WBC 0-5 /HPF (0-5) 10/23/24 20:28 Ur Squamous Epith Cells 3-5 /HPF (0-2) 10/23/24 20:28 Urine Bacteria None Seen (None Seen) 10/23/24 20:28 Hyaline Casts 3-5 /LPF (0-2) 10/23/24 20:28 Respiratory Panel Adkins See Note 10/24/24 12:51 Adenovirus (Rapid PCR) Not Detected (Not Detect.) 10/24/24 12:51 B.pert (TEM-PCR) Not Detected (Not Detect.) 10/24/24 12:51 B.parapertussis DNA PCR Not Detected (Not Detect.) 10/24/24 12:51 C. pneumoniae DNA (PCR) Not Detected (Not Detect.) 10/24/24 12:51 Coronavirus OC43 (PCR) Not Detected (Not Detect.) 10/24/24 12:51 Coronavirus HKU1 (PCR) Not Detected (Not Detect.) 10/24/24 12:51 Coronavirus 229E (PCR) Not Detected (Not Detect.) 10/24/24 12:51 Coronavirus NL63 (PCR) Not Detected (Not Detect.) 10/24/24 12:51 Human Metapneumovir PCR Not Detected (Not Detect.) 10/24/24 12:51 Influenza A (RT-PCR) Not Detected (Not Detect.) 10/24/24 12:51 Influenza A (H1) PCR Not Detected (Not Detect.) 10/24/24 12:51 Influ A (H1/09) PCR Not Detected (Not Detect.) 10/24/24 12:51 Influenza A (H3) PCR Not Detected (Not Detect.) 10/24/24 12:51 Influenza Type A (PCR) NEGATIVE (Negative) 10/23/24 16:51 Influenza B (RT-PCR) Not Detected (Not Detect.) 10/24/24 12:51 Influenza Type B (PCR) NEGATIVE (Negative) 10/23/24 16:51 M. pneumoniae (PCR) Not Detected (Not Detect.) 10/24/24 12:51 Parainfluenza 1 (PCR) Not Detected (Not Detect.) 10/24/24 12:51 Parainfluenza 2 (PCR) Not Detected (Not Detect.) 10/24/24 12:51 Parainfluenza 3 (PCR) Not Detected (Not Detect.) 10/24/24 12:51 Parainfluenza 4 (PCR) Not Detected (Not Detect.) 10/24/24 12:51 RSV (PCR) Not Detected (Not Detect.) 10/24/24 12:51 RSV RNA Qual (PCR) NEGATIVE (Negative) 10/23/24 16:51 Entero/Rhino (PCR) Not Detected (Not Detect.) 10/24/24 12:51 SARS-CoV-2 RNA (RT-PCR) Not Detected (Not Detect.) 10/24/24 12:51 TTE 10/26/24 - The left ventricular systolic function is low normal. The calculated ejection fraction is 52% by biplane method. - There is moderate posterior mitral annular calcification. Findings Procedure Information Contrast agent, definity, is being given per protocol without apparent complications. Left Ventricle Normal left ventricular cavity size. There is mildly increased left ventricular wall thickness. The left ventricular systolic function is low normal. The calculated ejection fraction is 52% by biplane method. Diastolic function is normal for age. Paradoxical septal motion consistent with conduction system abnormality. Discharge Plan Discharge Anticipated Discharge Date/Time: 10/28/24 13:28 Patient Disposition: er [facility] Discharge Diagnosis: acute/chronic hypoxic/hypercarbic respiratory failure due to COPD exacerbation Referrals: [facility] [Outside] - 1 Week KYLE MONTEIRO [Primary Care Provider, Internal Medicine] - 1 Week [facility] [Provider Group, Pulmonology] - 2 Weeks Discharge Medications: Continued acetaminophen 650 mg Suppository 650 mg WA Q6H PRN (Reason: Fever Or Pain) atorvastatin 20 mg tablet 20 mg PO BEDTIME quetiapine 300 mg tablet 300 mg PO BID nystatin 100,000 unit/gram ointment 1 appl topical DAILY Rx Instructions: Apply to left hip and leg donepezil 10 mg tablet 10 mg PO BEDTIME ondansetron HCl 4 mg tablet 4 mg PO Q8H PRN (Reason: Nausea And Vomiting) sertraline 100 mg tablet 100 mg PO DAILY loperamide 2 mg Tablet 2 mg PO NEEDED PRN (Reason: Loose Stool) Rx Instructions: administer after each loose stool until symptoms controlled; do not exceed 8 mg per 24 hrs pseudoephedrine-guaifenesin [Mucinex D] 60-600 mg Tablet Extended Release 12 Hr 1 tab PO BID valacyclovir 500 mg tablet 500 mg PO DAILY aspirin 81 mg Tablet,Delayed Release (Dr/Ec) 81 mg PO DAILY risperidone 3 mg tablet 3 mg PO BID gemfibrozil 600 mg tablet 600 mg PO BID bisacodyl 10 mg Suppository 10 mg WA DAILY PRN (Reason: Constipation) Fleet Enema 19-7 gram/118 mL Enema 118 ml WA DAILY PRN (Reason: Constipation) docusate sodium 100 mg Capsule 100 mg PO DAILY lisinopril 5 mg tablet 5 mg PO DAILY lorazepam 1 mg tablet 1 mg PO TID epinephrine [EpiPen] 0.3 mg/0.3 mL Auto-Injector 0.3 mg IM Q15M PRN (Reason: Allergic Reaction) Rx Instructions: for 2 doses polyethylene glycol 3350 [Miralax] 17 gram/dose Powder 17 g PO DAILY PRN (Reason: Constipation) ferrous sulfate 325 mg (65 mg iron) Tablet,Delayed Release (Dr/Ec) 325 mg PO DAILY Artificial Tears (PF) Dropperette 1 drp OPHTHALMIC (EYE) Q4H PRN (Reason: Dry Eye(S)) Rx Instructions: Both eyes risperidone microspheres [Risperdal Consta] 50 mg/2 mL suspension,extended rel recon 50 mg IM Q2W Rx Instructions: on wednesdays metoprolol tartrate 25 mg tablet 12.5 mg PO BID chlorhexidine gluconate 0.12 % mouthwash 15 ml PO BID Muscle Rub 15-10 % Cream 1 appl TOPICAL DAILY PRN (Reason: Pain) cholecalciferol (vitamin D3) 1,250 mcg (50,000 unit) Tablet 1,250 mcg PO QMONTH Rx Instructions: Give the 8th of every month Gvoke 1 mg/0.2 mL Solution 1 mg SUBCUT Q15M PRN (Reason: low blood sugar) Rx Instructions: until target blood sugar attained Discharge Orders: Discharge Order (Routine); Ordered 10/28/24 Ordered By: Dylan Maciel Diet: Advance to usual diet Activity on Discharge: As tolerated Stand Alone Forms: Patient Portal Discharge page Print Language: Jamaican Care Plan Goals: respiratory health Health Concerns: acute/chronic hypoxic/hypercarbic respiratory failure due to COPD exacerbation Plan of Treatment: completed steroids and antibiotics in hospital use BiPAP at night: 40% fiO2, IPAP 18, EPEP 8 follow up with [facility] in 2 weeks Please follow up with your primary care doctor within 1 week. Return to the hospital if you experience recurrent or worsening symptoms. Assessment: See Discharge Summary.
--- NOTE | 2024-10-28 13:40 | MHC.CM.PN ---
second IMM 10/28/24, Pt has been medically cleared for DC, she will return to [facility] via BLS this afternoon.
[2024-10-28 15:13] VITALS: BP 128/71; PULSE 84; RESP 17; TEMP 36.3; O2SAT 92
== END 2024-10-28 16:30 | DRG 190 ==
LOC: HO.ED 19:19 → HO.EDOVER 22:51 → HO.ICU 10-24 00:01 → HO.IMC 10-24 13:53
PROVIDERS: Internal Medicine; Physician Assistant Medical; Admitting Provider Internal Medicine Critical Care Medicine; Emergency Provider Emergency Medicine Emergency Medical Services; PCP Emergency Medicine; Visit Provider Family Medicine
DX: J44.1 Chronic obstructive pulmonary disease with (acute) exacerbation (principal); I50.23 Acute on chronic systolic (congestive) heart failure; J96.22 Acute and chronic respiratory failure with hypercapnia; J96.21 Acute and chronic respiratory failure with hypoxia; J98.11 Atelectasis; Z68.42 Body mass index [BMI] 45.0-49.9, adult; E66.01 Morbid (severe) obesity due to excess calories; F32.A Depression, unspecified; F41.9 Anxiety disorder, unspecified; E78.5 Hyperlipidemia, unspecified; I11.0 Hypertensive heart disease with heart failure; Z20.822 Contact with and (suspected) exposure to COVID-19; Z79.82 Long term (current) use of aspirin; Z79.899 Other long term (current) drug therapy
CPT/HCPCS: 36415; 71045; 71250; 80048; 80053; 80076; 81001; 82803; 83605; 83735; 83880; 84100; 84484; 85025; 85027; 87040; 87070; 87205; 87633; 87637; 93005; 93306; 94640; 94660; 94799; 99285; J0456; J0692; J0696; J1650; J1938; J2919; J3475; J7120; Q9957

== ENCOUNTER → 2024-10-23 15:36 | Outpatient (BNV) | payer MEDICARE, MEDICAID, SELFPAY | PROVIDERS: Admitting Provider Internal Medicine Critical Care Medicine; Emergency Provider Emergency Medicine Emergency Medical Services; PCP Emergency Medicine; Visit Provider Internal Medicine Cardiovascular Disease | DX: I45.2 Bifascicular block (principal) | CPT/HCPCS: 93010 ==

== ENCOUNTER → 2024-10-23 16:08 | Outpatient (BNV) | payer MEDICARE, MEDICAID, SELFPAY | PROVIDERS: Emergency Provider Emergency Medicine Emergency Medical Services; PCP Emergency Medicine; Visit Provider Radiology Diagnostic Radiology | DX: R91.8 Other nonspecific abnormal finding of lung field (principal) | CPT/HCPCS: 71045 ==

== ENCOUNTER 2024-10-23 22:46 | Outpatient (BNV) | payer MEDICARE, MEDICAID, SELFPAY | END 2024-10-26 07:00 | PROVIDERS: Admitting Provider Internal Medicine Critical Care Medicine; Emergency Provider Emergency Medicine Emergency Medical Services; PCP Emergency Medicine; Visit Provider Internal Medicine | DX: I34.81 Nonrheumatic mitral (valve) annulus calcification (principal); I45.9 Conduction disorder, unspecified; I36.1 Nonrheumatic tricuspid (valve) insufficiency | CPT/HCPCS: 93306 ==

== ENCOUNTER → 2024-10-23 22:46 | Outpatient (BNV) | payer MEDICARE, MEDICAID, SELFPAY | PROVIDERS: Admitting Provider Internal Medicine Critical Care Medicine; Emergency Provider Emergency Medicine Emergency Medical Services; PCP Emergency Medicine; Visit Provider Internal Medicine | DX: J44.9 Chronic obstructive pulmonary disease, unspecified (principal) | CPT/HCPCS: 99232; 99499 ==

== ENCOUNTER → 2024-10-23 22:46 | Outpatient (BNV) | payer MEDICARE, MEDICAID, SELFPAY | PROVIDERS: Admitting Provider Internal Medicine Critical Care Medicine; Emergency Provider Emergency Medicine Emergency Medical Services; PCP Emergency Medicine; Visit Provider Internal Medicine Pulmonary Disease | DX: J96.01 Acute respiratory failure with hypoxia (principal); J96.02 Acute respiratory failure with hypercapnia; J44.9 Chronic obstructive pulmonary disease, unspecified; I50.23 Acute on chronic systolic (congestive) heart failure | CPT/HCPCS: 99222 ==

== ENCOUNTER → 2024-10-23 22:46 | Outpatient (BNV) | payer MEDICARE, MEDICAID, SELFPAY | PROVIDERS: Admitting Provider Physician Assistant Medical; Emergency Provider Emergency Medicine Emergency Medical Services; PCP Emergency Medicine; Visit Provider Internal Medicine Critical Care Medicine | DX: J44.1 Chronic obstructive pulmonary disease with (acute) exacerbation (principal); J96.01 Acute respiratory failure with hypoxia; J96.02 Acute respiratory failure with hypercapnia; F41.9 Anxiety disorder, unspecified | CPT/HCPCS: 99223; 99233 ==

== ENCOUNTER 2025-01-13 13:08 | Outpatient (AMB) | payer MEDICARE, MEDICAID, SELFPAY ==
--- NOTE | 2025-01-13 13:15 | MHC.OFFVIS ---
Vital Signs 01/13/25 13:20 Height 5 ft 8 in BMI Reason not done Patient refused/unable BP 118/60 Blood Pressure Location Rt radial Position Sitting Pulse 68 Pulse Source Pulse Oximeter Pulse Oximetry (%) 97 Oxygen Delivery Method Nasal Cannula Oxygen Flow Rate 3 Intake Visit Reasons: COPD Allergies amoxicillin Allergy (Verified 01/13/25 13:27) Unknown indomethacin Allergy (Verified 01/13/25 13:27) Unknown naproxen (From Naprosyn) Allergy (Verified 01/13/25 13:27) Unknown Papaya Derivative Allergy (Verified 01/13/25 13:27) Unknown Penicillins Allergy (Verified 01/13/25 13:27) Unknown tramadol (From Ultram) Allergy (Verified 01/13/25 13:27) Unknown HPI HPI COPD: Details: Mayra is a pleasant 59 year old female, 40+ pack-year smoker with underlying COPD and CHF. She resides at a SNF and is accompanied by EMT as she is currently on a stretcher although she does ambulate. She was referred by [facility] after hospitalization in October 2024 in which she presented to the emergency room with complaints of worsening shortness of breath. In the ED patient was placed on BiPAP for a couple hours, repeated venous blood gas showed correction of the respiratory acidosis and the patient was more awake, however the patient was then switched to nasal cannula oxygen and an hour later the venous blood gas was repeated showing recurrent CO2 retention and the patient also developed recurrent mental status changes with obtundation and significant episodes of apnea. CXR showed possible pulmonary congestion with prominence of interstitial markings which may be chronic versus interstitial edema or interstitial infiltrates. Chest CT revealed trace bilateral pleural effusions with adjacent atelectasis and/or infiltrates. She was admitted to the ICU for BiPAP therapy. She was treated with IV steroids, ceftriaxone and azithromycin, nebulized bronchodilators, and empiric diuresis. She improved and was stepped down to the hospitalist service/telemetry unit on 10/24/24. She completed steroid and antibiotic therapy. She remained on nocturnal BiPAP and should continue this which she has been using at the SNF. She has been living in a facility for six years and uses a walker and wheelchair for mobility. Since discharge she reports significant improvements in respiratory symptoms however continues with intermittent dyspnea. Denies wheezing or cough. The patient reports daily sneezing, attributed to sadler in her room, and occasional chest congestion, which improved with oxygen therapy. On route she was placed on 2-3L supplemental oxygen as she desaturated to 89%. She uses oxygen at the facility but does not always wear it, and her oxygen saturation improves with its use. She has a history of COPD and has undergone a breathing test in the past, although details are unclear. The patient has a smoking history starting at age 18 and continues to smoke a pack a day despite attempts to quit using nicotine patches, gum, and hypnosis. She also has a history of congestive heart failure, which contributes to her shortness of breath, reportedly on lasix BID however no updated medication list was provided today. She did have echo inpatient which revealed LVEF 52% however is not established with Cardiology and has no upcoming appointments scheduled. Since discharge she has been using a BiPAP machine at night for sleep apnea, with settings provided by [employer], and reports using it for about 10 hours nightly. [facility] Social History (Reviewed 01/13/25 @ 13:26 by Zuleika Castaneda [facility]) Household Members: None Housing: [facility] Do you presently have visiting nurse or other home services: No Patient Tobacco Use Status: Never used Tobacco service: No Review of Systems Const Denies chills, Denies excessive sweating, Denies fever(s), Denies headache(s) and Denies night sweats Eyes Denies dry eyes, Denies irritation and Denies itchy eyes ENT Reports Normal hearing present, Denies headache(s), Denies nasal discharge, Denies post nasal drip and Denies sore throat Card Denies chest pain, Denies chest pain at rest, Denies chest pain with activity, Denies claudication, Denies leg edema, Denies dyspnea, Denies orthopnea and Denies paroxysmal nocturnal dyspnea Resp Denies cough, Denies excessive phlegm production, Denies pain on inspiration, Denies pain with cough, Denies dyspnea, Denies stridor and Denies wheezing Musc Denies myalgias Neuro Reports Normal hearing present and Denies headache(s) Endo Denies excessive sweating Aller/Immun Denies itchy eyes, Reports seasonal rhinorrhea and Denies wheezing Physical Exam Vital Signs: Last Vital Signs Pulse 68 01/13/25 13:20 BP 118/60 01/13/25 13:20 Pulse Ox 97 01/13/25 13:20 Oxygen Delivery Method Nasal Cannula 01/13/25 13:20 Oxygen Flow Rate 3 01/13/25 13:20 Const Other: Currently on stretcher General: cooperative, comfortable, no acute distress and alert Nutritional Appearance: obese Orientation/consciousness: patient oriented x3 HEENT Head: Yes normal to inspection, Yes normocephalic and Yes atraumatic Ears: hearing grossly normal bilaterally and external ears normal Eyes General: appearance normal, both eyes and all related structures Eyelids: Yes eyelids normal Sclerae: sclerae normal EOM: EOMs intact bilaterally Neck Neck: Yes normal visual inspection and Yes no lymphadenopathy Lymphatic: no lymphadenopathy noted Chest Chest palpation & inspection: normal inspection of the chest Resp Effort & Inspection: normal respiratory effort, able to speak in complete sentences, no audible wheezes, no cough, no stridor, not tachypneic, no tripod positioning and no use of accessory muscles Auscultation: clear to auscultation bilaterally Cardio Jugular venous distension: no JVD Rate: regular rate Rhythm: regular rhythm Skin Other: warm, dry General skin exam: no rashes or lesions noted Neuro General: patient oriented x3 Cranial nerves: Yes Normal hearing present Cognition (Neuro): normal cognition Gait exam (Neuro): Normal gait present Extrem Other: 3+ pitting edema bilateral lower extremities, history of lymphedema Psych Appearance: grossly normal and well kempt Speech and movement: Normal speech and movement present and Clear speech present Affect: normal affect Attitude: cooperative Thought process: Normal thought process present Thought content: Normal thought content present Insight: Good insight present (Psych) Judgement: Good judgement present (Psych) Assessment & Plan Assessment & Plan (1) COPD (chronic obstructive pulmonary disease): Code(s): J44.9 - Chronic obstructive pulmonary disease, unspecified Category: Medical (2) Nicotine dependence, cigarettes, uncomplicated: Code(s): F17.210 - Nicotine dependence, cigarettes, uncomplicated Category: Medical (3) Morbid obesity: Code(s): E66.01 - Morbid (severe) obesity due to excess calories Category: Medical (4) Pleural effusion: Code(s): J90 - Pleural effusion, not elsewhere classified Category: Medical Plan She was initially referred by [facility] after recent hospitalization for COPD versus CHF exacerbation. At this time she reports significant improvement since being discharged in October however continues with some degree of dyspnea. Although she is transferring in a stretcher she does state that she is able to ambulate so will send for PFT to assess severity of obstructive defect. She also reports she is on a daily inhaler however it is unclear which medication or dose. Will reach out to SNF to obtain updated medication list. Advised to continue supplemental oxygen 2 L to maintain oxygen saturation greater than 92%. Prior chest CT revealed trace bilateral pleural effusions. Will send for repeat chest CT to assess for resolution. At this time patient is currently using BiPAP machine for significant CO2 retention during hospital admission. She reports [employer] as her DME, will reach out to obtain setting information as well as compliance. Smoking cessation reviewed, patient not ready to quit at this time. All questions were answered and patient is in agreement of plan. Will follow-up to review results or sooner if needed. Orders: Orders PFT pulmonary function test Today J44.9 - Chronic obstructive pulmonary disease, unspecified CT chest wo IV con Today J90 - Pleural effusion, not elsewhere classified Coding Level of Care Code New Pt Level 4 (22904) Complex EM visit Add On G2211 Diagnoses COPD (chronic obstructive pulmonary disease) J44.9 Nicotine dependence, cigarettes, uncomplicated F17.210 Morbid obesity E66.01 Pleural effusion J90
[2025-01-13 13:20] VITALS: BP 118/60; PULSE 68; O2SAT 97
--- OUTSIDE RECORDS SUMMARY | 2025-01-13 14:24 | XMS_ITS ---
Author Organization [employer] Support Name Relationship Address Phone Glo Boyle Agent [address] [place] [address] Rubio Jo Next of Kin Unknown [phone] RodolfoJose Armando armandor Next of Kin Unknown Christina Faye Next of Kin Unknown [phone] Alysia Toledo Next of Kin [address] [place] [address] Mayra Colindres Guarantor [address] [place], [place] [phone] Mayra Colindres Agent [address] [place] [address] Raheem Colindres Next of Kin Unknown [phone] Mental Status Section Date Assessment Total Score Description 10/06/2020 BIMS 15 cognitively int act CAM 0 No delirium ind icated PHQ-9 0 07/07/2020 BIMS 15 cognitively int act CAM 0 No delirium ind icated PHQ-9 0 Reason for Referral No Reasons for Referral Entered Social History Social History Observation Description Start Date End Date Code Code System Current Smoking Status Tobacco smoking consumption unknown 318469459 SNOMED CT Sex Assigned At Female 1965 72436-4 [facility] Gender Identity Sexual Orientation Vital Signs Code Code System Vitals Name Values and Units Timing Information 54093-2 LOINC Weight Slmcs=485.7 Units=Lbs 9279-1 LOINC Respiratory Rate Value=20.0 Units=/m in 09/13/2020 8462-4 LOINC Blood Pressure-Diastolic Value=72 Un its=mmHg 09/13/2020 8480-6 LOINC Blood Pressure-Systolic Yxkkm=187 Un its=mmHg 09/13/2020 8867-4 LOINC Heart rate Value=83.0 Units=/min 04/2020 8310-5 [facility] Body Temperature Value=97.0 Units= F 08/23/2020
== END 2025-01-13 14:17 | disposition home or self-care (01) ==
LOC: HO.HPSW 13:08
PROVIDERS: PCP Emergency Medicine; Visit Provider Nurse Practitioner Family
DX: J44.9 Chronic obstructive pulmonary disease, unspecified (principal); F17.210 Nicotine dependence, cigarettes, uncomplicated; E66.01 Morbid (severe) obesity due to excess calories; J90 Pleural effusion, not elsewhere classified
CPT/HCPCS: 99204; G2211

== ENCOUNTER → 2025-01-13 13:08 | Outpatient (BNVA) | payer MEDICARE, MEDICAID, SELFPAY | PROVIDERS: PCP Emergency Medicine; Visit Provider Nurse Practitioner Family | DX: R91.8 Other nonspecific abnormal finding of lung field (principal); J44.0 Chronic obstructive pulmonary disease with (acute) lower respiratory infection; Z99.81 Dependence on supplemental oxygen | CPT/HCPCS: 99202 ==

== ENCOUNTER 2025-04-12 16:33 | Outpatient (REF) | payer MEDICARE, MEDICAID, SELFPAY ==
--- NOTE | ~2025-04-12 | CT_ITS ---
EXAMINATION: CT CHEST WITHOUT CONTRAST CLINICAL INFORMATION: Pleural effusion CT chest without contrast 10/23/2024. COMPARISON: None available. TECHNIQUE: Multidetector volumetric CT imaging of the chest was done. Axial MIP volume rendering provided. Sagittal and coronal reformatted images were obtained. This CT examination was performed using dose optimization techniques as appropriate, variously including the following: *Automated exposure control *Adjustment of mA and/or kV according to patient size (this includes techniques or standardized protocols for targeted exams where dose is matched to indication/reason for exam; i.e. extremities or head) *Use of iterative reconstruction technique FINDINGS: [employer]OUNT [employer]GER: Hyperinflated lungs without acute process. LUNGS: The lungs are expanded without acute pneumonic process. There are no pulmonary nodules, mass or atelectasis. MEDIASTINUM: Heart size and the great vessels are normal caliber. There is dense mitral valve calcification. No pericardial effusion seen. Central trachea and the bronchi are widely patent. Thyroid lobes are symmetric and normal. No abnormal size mediastinal adenopathy. CORONARY ARTERY CALCIFICATION: None visualized on this study. PLEURA: There is trace bilateral pleural effusions without pleural thickening or calcification. AXILLA: Small shotty lymph nodes are seen in bilateral axilla. The chest wall is unremarkable. UPPER ABDOMEN: Visualized liver, spleen, pancreas and adrenal glands unremarkable. OSSEOUS STRUCTURES: No aggressive lytic or sclerotic process seen. There is mild degenerative disc changes and ventral spondylosis dorsal spine. CT/CT chest wo IV con IMPRESSION: Trace bilateral pleural effusions. Previous CT visualized bibasilar atelectasis has resolved. Fleischner guidelines were followed. Electronically signed by: Chuck Torres MD 04/13/2025 07:33 AM EST
== END 2025-04-12 16:34 ==
LOC: HO.CT 16:33
PROVIDERS: PCP Internal Medicine; Visit Provider Nurse Practitioner Family
DX: J90 Pleural effusion, not elsewhere classified (principal)
CPT/HCPCS: 71250

== ENCOUNTER → 2025-04-12 16:43 | Outpatient (BNV) | payer MEDICARE, MEDICAID, SELFPAY | PROVIDERS: PCP Internal Medicine; Visit Provider Radiology Diagnostic Radiology | DX: J90 Pleural effusion, not elsewhere classified (principal) | CPT/HCPCS: 71250 ==